=== PATIENT | male | born 1965 | race Caucasian/White ===

== ENCOUNTER 2018-06-11 04:55 | Emergency (ER) | payer SELFPAY ==
[2018-06-11 04:56] VITALS: BP 180/101; PULSE 85; RESP 22; TEMP 36.4; O2SAT 96; BMI 39.6
[2018-06-11 04:59] VITALS: BP 170/116
--- NOTE | 2018-06-11 05:04 | RAD_ITS ---
STUDY: X-RAY CHEST REASON FOR EXAM: Male, 52 years old. Chest pain. TECHNIQUE: Single AP portable view of the chest. COMPARISON: February 12, 2016. FINDINGS: Patient has left-sided intracardiac pacemaker. The patient has had a sternotomy. The lungs are hyperexpanded. There is heterogeneous mixed interstitial and airspace consolidations throughout both lungs. There is mild prominence of bronchovascular markings. There is no demonstrated pleural abnormality. There is moderate cardiac enlargement. Normal mediastinum and seb. There is prominence of the pulmonary hilar arteries without peripheral pulmonary vascular congestion. There is atherosclerotic calcification of the aortic arch with tortuosity. There are diffuse degenerative changes of the visualized thoracic spine. Normal visualized ribs, clavicles, and shoulders. There is no demonstrated abnormality of the visualized soft tissue structures of the upper abdomen. RAD/Chest 1 View (Portable) IMPRESSION: 1. Cardiomegaly and mild pulmonary congestion. 2. Heterogeneous right-sided and left basilar airspace consolidation possibly representing pneumonia. Electronically Signed: Bel Brice MD at 5:56 EST , Service support ,
--- NOTE | 2018-06-11 05:04 | EKG12_ITS ---
Test Reason : CP Blood Pressure : / mmHG Vent. Rate : 079 BPM Atrial Rate : 079 BPM P-R Int : 146 ms QRS Dur : 194 ms QT Int : 462 ms P-R-T Axes : 052 -77 092 degrees QTc Int : 529 ms Atrial-sensed ventricular-paced rhythm Abnormal ECG Confirmed by JIN DURON, JEN ([id number]), editorial clerk GEN HERNÁNDEZ ([id number]) on 06/13/2018 8:48:51 AM Referred By: TAVO Confirmed By:JEN ABDI MD
--- NOTE | 2018-06-11 05:09 | ED.VISSUMM ---
- ER Visit Summary Date of Service: 06/11/18 Chief Complaint: Not feeling well History of Present Illness: The patient is a 52 M presenting stating that he does not feel well. He states that this started today. He is unable to describe his symptoms. He denies chest pain. He states he has had shortness of breath since 2016. He denies abdominal pain, nausea, vomiting. Denies diarrhea or constipation. Denies headache. He states he has decreased energy. He denies lightheadedness or syncope. He states he is due for an ICD check. He has a history of hypertrophic cardiomyopathy status post myomectomy and ICD placement in 2016. He is not a smoker. He denies other medical problems. Physical Examination: Vitals are stable. Blood pressure 170/116. Patient is afebrile. Alert no acute distress. HEENT exam is unremarkable. Neck is supple. Lungs are diminished bilaterally. Heart is regular rate and rhythm. Abdomen is soft nontender nondistended. Extremities are unremarkable. Skin is warm and dry. No focal neurologic deficit. Remainder of exam is unremarkable. Emergency Department Course and Treatment: EKG is paced at rate of 79. Chest xray shows cardiomegaly and mild pulmonary congestion. Heterogeneous right-sided and left basilar airspace consolidation possibly representing pneumonia. Chemistries showed BUN 19, creatinine 1.54, previous 1.29. Troponin 0.043. Urinalysis unremarkable. Blood cultures were sent. He was given Levaquin IV. Discussed with the hospitalist for observation. Patient was seen by the hospitalist and does not want to be admitted. He agrees to a delta troponin. This will be signed out to oncoming physician. Patient agrees to delta troponin but then will sign out AGAINST MEDICAL ADVICE unless it is positive. He plans to drive to [facility] pending these results. Disposition: Pending results Impression: Community acquired pneumonia, fatigue This note was generated with [employer] dictation software. It may contain incorrect words, spelling, and punctuation that were not noted in review of the chart prior to signing ED Disposition - Plan for ED Patient: Chief Complaint: Chest Pain Referrals: Care Physician,No Primary [Primary Care Provider] -
[2018-06-11] MEDS: Aspirin 81 MG TAB.CHEW 324 MG PO (05:10)
--- NOTE | 2018-06-11 05:12 | ED.DCSUM_ITS ---
- ER Visit Summary Date of Service: 06/11/18 Chief Complaint: Not feeling well History of Present Illness: The patient is a 52 M presenting stating that he does not feel well. He states that this started today. He is unable to describe his symptoms. He denies chest pain. He states he has had shortness of breath since 2016. He denies abdominal pain, nausea, vomiting. Denies diarrhea or constipation. Denies headache. He states he has decreased energy. He denies lightheadedness or syncope. He states he is due for an ICD check. He has a history of hypertrophic cardiomyopathy status post myomectomy and ICD placement in 2016. He is not a smoker. He denies other medical problems. Physical Examination: Vitals are stable. Blood pressure 170/116. Patient is afebrile. Alert no acute distress. HEENT exam is unremarkable. Neck is supple. Lungs are diminished bilaterally. Heart is regular rate and rhythm. Abdomen is soft nontender nondistended. Extremities are unremarkable. Skin is warm and dry. No focal neurologic deficit. Remainder of exam is unremarkable. Emergency Department Course and Treatment: EKG is paced at rate of 79. Chest xray shows cardiomegaly and mild pulmonary congestion. Heterogeneous right- sided and left basilar airspace consolidation possibly representing pneumonia. Chemistries showed BUN 19, creatinine 1.54, previous 1.29. Troponin 0.043. Urinalysis unremarkable. Blood cultures were sent. He was given Levaquin IV. Discussed with the hospitalist for observation. Patient was seen by the hospitalist and does not want to be admitted. He agrees to a delta troponin. This will be signed out to oncoming physician. Patient agrees to delta troponin but then will sign out AGAINST MEDICAL ADVICE unless it is positive. He plans to drive to [facility] pending these results. Disposition: Pending results Impression: Community acquired pneumonia, fatigue This note was generated with [employer] dictation software. It may contain incorrect words, spelling, and punctuation that were not noted in review of the chart prior to signing ED Disposition - Plan for ED Patient: Chief Complaint: Chest Pain Referrals: Care Physician,No Primary [Primary Care Provider] -
[2018-06-11 05:14] LABS: Absolute Lymphocyte Count 1.93 X10^3/ul (0.83-4.51); Absolute Neutrophil Count 3.7 X10^3/uL (2.0-7.7); Basophil# 0.05 X10^3/uL; Basophil% 0.6 % (0-1); Eosinophil# 0.76 X10^3/uL; Eosinophils% 9.8 % (0-5); Hematocrit 47.1 % (40-54); Hemoglobin 16.4 g/dl (13.0-16.5); Lymphocyte # 1.93 X10^3/ul (4.0); Lymphocyte % 24.9 % (19-41); Mean Corp Hgb Conc 34.8 g/gl (32-36); Mean Corpuscular Hgb 30.8 pg (27.0-32.0); Mean Corpuscular Volume 88.4 fL (80-94); Monocyte# 1.35 X10^3/uL; Monocyte% 17.4 % (0-10); Neutrophil # 3.65 X10^3/uL (2.7-7.7); POSITIVE COUNT NO; POSITIVE DIFFERENTIAL NO; POSITIVE MORPHOLOGY NO; Platelet Count 259 K/mm3 (150-450); Red Blood Count 5.33 M/mm3 (4.6-6.2); White Blood Count 7.8 K/mm3 (4.4-11.0)
[2018-06-11 05:31] LABS: Bacteria 0 SEEN /hpf (None Seen); Mucous, Urine 0 SEEN /hpf (<or=2+); Red Blood Cells-Urine 0 SEEN /hpf (0-5); Squamous Epithelial Cells - UA 0 SEEN /hpf (0-5); White Blood Cells 0 SEEN /hpf (0-5)
[2018-06-11 05:32] LABS: Anion Gap 9 (5-15); BUN 19 mg/dL (7-18); BUN/Creat Ratio 12.3 RATIO (10-20); Calcium,Total 8.8 mg/dL (8.5-10.1); Chloride 101 mmol/L (98-107); Creatinine, Serum 1.54 mg/dL (0.70-1.30); EST Glomerular Filtration Rate 51 mL/min (>60); Est Glom Filt Rate - Afr Amer 61 mL/min (>60); Estimated Creatinine Clearance 63.41 ml/min; Glucose 149 mg/dL (74-106); Potassium 3.7 mmol/L (3.5-5.1); Sodium Level 137 mmol/L (136-145)
[2018-06-11 05:42] LABS: Color, Urine Yellow (Yellow); Glucose, Dipstick Normal (Normal); Ketone-Dipstick Negative (Negative); Leukocyte Esterase-Dipstick Negative /ul (Negative); Nitrite-Dipstick Negative (Negative); Occult Blood-Urine Negative /ul (Negative); Protein-Dipstick Negative (Negative); Urine Bilirubin Dipstick Negative (Negative); Urine Clarity Clear (Clear); Urine Urobilinogen Normal (Normal)
[2018-06-11 06:04] VITALS: BP 144/78; PULSE 81; RESP 22; O2SAT 98
[2018-06-11] MEDS: levoFLOXacin IV 750 MG/150 ML BAG 100 MG IV (07:08)
[2018-06-11 08:01] LABS: BNP,B-Type NATRIURETIC PEPTIDE 172.3 pg/mL (0-100)
[2018-06-11 08:06] VITALS: BP 122/83; PULSE 74; RESP 19; O2SAT 96
--- NOTE | 2018-06-11 09:24 | ED.VISSUMM ---
- ER Visit Summary Date of Service: 06/11/18 Chief Complaint: [] History of Present Illness: The patient is a 52 M [] Physical Examination: [] Test Results: [] Emergency Department Course and Treatment: [] Treatment Plan: [] Disposition: [] Impression: [] This note was generated with [employer] dictation software. It may contain incorrect words, spelling, and punctuation that were not noted in review of the chart prior to signing ED Disposition - Plan for ED Patient: Disposition: Against Medical Advice Chief Complaint: Chest Pain Instructions: ED Pneumonia Adult, Your Heart is at Risk, Symptoms of a Heart Attack Prescriptions: Doxycycline [Vibramycin] 100 mg PO BID #14 capsule Referrals: Care Physician,No Primary [Primary Care Provider] - Additional Instructions: Your prescription was electronically transmitted to [facility]. If you have any chest discomfort, difficulty breathing or any concerns please do not hesitate to return immediately
--- NOTE | 2018-06-11 09:27 | ED.DCSUM_ITS ---
- ER Visit Summary Date of Service: 06/11/18 Chief Complaint: [] History of Present Illness: The patient is a 52 M [] Physical Examination: [] Test Results: [] Emergency Department Course and Treatment: [] Treatment Plan: [] Disposition: [] Impression: [] This note was generated with [employer] dictation software. It may contain incorrect words, spelling, and punctuation that were not noted in review of the chart prior to signing ED Disposition - Plan for ED Patient: Disposition: Against Medical Advice Chief Complaint: Chest Pain Instructions: ED Pneumonia Adult, Your Heart is at Risk, Symptoms of a Heart Attack Prescriptions: Doxycycline [Vibramycin] 100 mg PO BID #14 capsule Referrals: Care Physician,No Primary [Primary Care Provider] - Additional Instructions: Your prescription was electronically transmitted to [facility]. If you have any chest discomfort, difficulty breathing or any concerns please do not hesitate to return immediately
[2018-06-11 09:35] VITALS: BP 145/90; PULSE 67; RESP 14; O2SAT 96
== END 2018-06-11 09:35 | disposition left against medical advice (07) ==
PROVIDERS: Emergency Provider Emergency Medicine
DX: R91.8 Other nonspecific abnormal finding of lung field (principal); R79.89 Other specified abnormal findings of blood chemistry; I42.2 Other hypertrophic cardiomyopathy; I49.9 Cardiac arrhythmia, unspecified; Z95.810 Presence of automatic (implantable) cardiac defibrillator; I10 Essential (primary) hypertension; Z53.21 Procedure and treatment not carried out due to patient leaving prior to being seen by health care provider; J18.9 Pneumonia, unspecified organism; R53.83 Other fatigue
CPT/HCPCS: 36415; 71045; 80048; 81001; 83880; 84484; 85025; 87040; 87804; 93005; 96365; 96366; 99285; J7050; A4216

== ENCOUNTER 2019-05-29 19:20 | Emergency (ER) | payer OTHER, SELFPAY ==
[2019-05-29] VITALS (7 sets, daily range): BP systolic 143–160; BP diastolic 75–80; PULSE 81–88; RESP 16–29; TEMP 37.4; O2SAT 92–94; BMI 41.5
--- NOTE | 2019-05-29 19:46 | EKG12_ITS ---
Test Reason : Blood Pressure : / mmHG Vent. Rate : 083 BPM Atrial Rate : 083 BPM P-R Int : 142 ms QRS Dur : 174 ms QT Int : 436 ms P-R-T Axes : -11 -85 080 degrees QTc Int : 512 ms Atrial-sensed ventricular-paced rhythm Abnormal ECG Confirmed by LIN ARIZMENDI ([id number]), managing editor GEN HERNÁNDEZ ([id number]) on 06/01/2019 11:24:04 AM Referred By: MR Confirmed By:LIN ARIZMENDI
[2019-05-29 20:00] LABS: Absolute Lymphocyte Count 0.89 X10^3/uL (0.83-4.51); Basophil# 0.04 X10^3/uL; Basophil% 0.3 % (0-1); Eosinophil# 0.34 X10^3/uL; Eosinophils% 2.9 % (0-5); Hematocrit 43.8 % (40-54); Hemoglobin 15.1 g/dL (13.0-16.5); Lymphocyte # 0.89 X10^3/ul (4.0); Lymphocyte % 7.6 % (19-41); Mean Corp Hgb Conc 34.5 g/dL (32-36); Mean Corpuscular Hgb 31.3 pg (27.0-32.0); Mean Corpuscular Volume 90.9 fL (80-94); Mean Platelet Vol. 10.1 fl (6.2-12.0); Monocyte# 1.42 X10^3/uL; Monocyte% 12.1 % (0-10); NRBC Flagged by Analyzer 0 % (0-5); Neutrophil # 9.02 X10^3/uL (2.7-7.7); Neutrophil % 76.7 % (47-70); Platelet Count 232 K/mm3 (150-450); RBC Distribution Width CV 12.6 % (11.6-14.6); Red Blood Count 4.82 M/mm3 (4.6-6.2); White Blood Count 11.8 K/mm3 (4.4-11.0)
[2019-05-29] MEDS: Ipratropium/Albuterol Sulfate 3 ML AMPUL.NEB INHALATION (20:12)
[2019-05-29 20:14] LABS: Anion Gap 6 (5-15); BUN 20 mg/dL (7-18); BUN/Creat Ratio 19.2 RATIO (10-20); Calcium,Total 8.9 mg/dL (8.5-10.1); Chloride 108 mmol/L (98-107); Creatinine, Serum 1.04 mg/dL (0.70-1.30); EST Glomerular Filtration Rate 79 mL/min (>60); Est Glom Filt Rate - Afr Amer 96 mL/min (>60); Estimated Creatinine Clearance 92.83 ml/min; Glucose 112 mg/dL (74-106); Potassium 4.2 mmol/L (3.5-5.1); Sodium Level 139 mmol/L (136-145)
--- NOTE | 2019-05-29 20:30 | RAD_ITS ---
STUDY: X-RAY CHEST REASON FOR EXAM: Male, 53 years old. Cough. TECHNIQUE: PA and lateral views of the chest. COMPARISON: June 11, 2018. FINDINGS: Pacemaker device on the left is stable. There are monitoring devices. There are moderate interstitial and groundglass increased opacities of the lungs. There is no demonstrated pleural abnormality. Sternal cerclage wires are present from a prior sternotomy. There is cardiac enlargement. Normal mediastinum and seb. Normal visualized pulmonary arteries. Normal visualized aortic arch and descending thoracic aorta. There are diffuse degenerative changes of the visualized thoracic spine. Normal visualized ribs, clavicles, and shoulders. There is no demonstrated abnormality of the visualized soft tissue structures of the upper abdomen. RAD/Chest PA and Lateral IMPRESSION: Cardiac enlargement. Interstitial edema or fibrosis. Electronically Signed: Carlton Haynes MD at 21:17 EST , Service support ,
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
[2019-05-29] MEDS: Azithromycin 250 MG Tablet 500 MG PO (22:14)
== END 2019-05-29 22:23 | disposition home or self-care (01) ==
PROVIDERS: Emergency Provider Emergency Medicine
DX: J18.9 Pneumonia, unspecified organism (principal); I42.2 Other hypertrophic cardiomyopathy; Z95.810 Presence of automatic (implantable) cardiac defibrillator
CPT/HCPCS: 71046; 80048; 84484; 85025; 93005; 94640; 99285; J7030

== ENCOUNTER → 2020-04-19 09:56 | Emergency (ER) | payer MEDICAID, SELFPAY ==
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
[2020-04-19] MEDS: Mixture 30 ML Bottle 5 ML TOPICAL (10:37)
== END | disposition home or self-care (01) ==
DX: R04.0 Epistaxis (principal); I42.1 Obstructive hypertrophic cardiomyopathy; Z79.01 Long term (current) use of anticoagulants; Z79.899 Other long term (current) drug therapy
CPT/HCPCS: 30901; 99281; 99283

== ENCOUNTER 2020-06-28 07:51 | Emergency (ER) | payer MEDICAID, SELFPAY ==
[2020-04-19 09:58] VITALS: BMI 36.6
[2020-06-28 07:52] VITALS: BP 170/98; PULSE 70; RESP 28; TEMP 36.2; O2SAT 95; BMI 39.8
[2020-06-28 07:55] VITALS: O2SAT 96
--- NOTE | 2020-06-28 07:59 | ED.RN ---
OLD EKG PULLED
--- NOTE | 2020-06-28 08:06 | EKG12_ITS ---
Test Reason : SOB Blood Pressure : / mmHG Vent. Rate : 070 BPM Atrial Rate : 136 BPM P-R Int : 000 ms QRS Dur : 188 ms QT Int : 478 ms P-R-T Axes : 000 -72 096 degrees QTc Int : 516 ms Ventricular-paced rhythm Abnormal ECG Confirmed by ADAM DURON, CRISTELA ([id number]), index editor MABEL OCONNOR ([id number]) on 07/03/2020 10:09:06 AM Referred By: SILVER Confirmed By:JOSEP MEDINA MD
--- NOTE | 2020-06-28 08:06 | RAD_ITS ---
STUDY: X-RAY CHEST REASON FOR EXAM: Male, 54 years old. sob TECHNIQUE: Single AP portable view of the chest. COMPARISON: 05/29/2019 FINDINGS: Increased patchy airspace disease bilaterally. Stable cardiomegaly with left chest wall pacing device and median sternotomy wires. Remainder is stable. RAD/Chest 1 View (Portable) IMPRESSION: Increased patchy airspace disease bilaterally Electronically Signed: Kin Hsu DO at 8:34 EST Tel , Service support ,
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
[2020-06-28 08:28] LABS: D-Dimer Quantitative (DVT/PE) 0.38 FEU/ug/m (0.27-0.49)
[2020-06-28 08:32] LABS: Anion Gap 7 (5-15); BUN 25 mg/dL (7-18); Calcium,Total 9.1 mg/dL (8.5-10.1); Chloride 103 mmol/L (98-107); Creatinine, Serum 1.19 mg/dL (0.70-1.30); EST Glomerular Filtration Rate 68 mL/min (>60); Est Glom Filt Rate - Afr Amer 82 mL/min (>60); Glucose 158 mg/dL (74-106); Sodium Level 137 mmol/L (136-145)
[2020-06-28 08:51] LABS: BNP,B-Type NATRIURETIC PEPTIDE 353.9 pg/mL (0-100)
[2020-06-28 09:22] VITALS: O2SAT 97
[2020-06-28 09:26] LABS: Absolute Lymphocyte Count 0.77 X10^3/uL (0.83-4.51); Absolute Neutrophil Count 7.7 X10^3/uL (2.0-7.7); Basophil# 0.04 X10^3/uL; Basophil% 0.4 % (0-1); Eosinophil# 0.22 X10^3/uL; Eosinophils% 2.2 % (0-5); Hematocrit 45.1 % (40-54); Hemoglobin 15.3 g/dL (13.0-16.5); Lymphocyte # 0.77 X10^3/ul (4.0); Lymphocyte % 7.6 % (19-41); Mean Corp Hgb Conc 33.9 g/dL (32-36); Mean Corpuscular Hgb 30.8 pg (27.0-32.0); Mean Corpuscular Volume 90.7 fL (80-94); Mean Platelet Vol. 10.1 fl (6.2-12.0); Monocyte# 1.37 X10^3/uL; Monocyte% 13.5 % (0-10); NRBC Flagged by Analyzer 0 % (0-5); Neutrophil # 7.71 X10^3/uL (2.7-7.7); Neutrophil % 75.9 % (47-70); Platelet Count 238 K/mm3 (150-450); RBC Distribution Width SD 42.5 fl (35.1-43.9); Red Blood Count 4.97 M/mm3 (4.6-6.2); White Blood Count 10.2 K/mm3 (4.4-11.0)
[2020-06-28 10:09] VITALS: BP 161/105; PULSE 70; RESP 17; O2SAT 99
[2020-06-28 11:03] VITALS: BP 162/71; PULSE 84; RESP 15; O2SAT 98
[2020-06-28] MEDS: levoFLOXacin 750 MG Tablet PO (11:06)
== END 2020-06-28 11:17 | disposition home or self-care (01) ==
LOC: ED 08:52
PROVIDERS: Emergency Provider Emergency Medicine
DX: J18.9 Pneumonia, unspecified organism (principal); Z79.01 Long term (current) use of anticoagulants
CPT/HCPCS: 71045; 80048; 83880; 84484; 85025; 85379; 87426; 93005; 99285; A4216

== ENCOUNTER 2021-06-15 11:29 | Emergency (ER) | payer MEDICAID, SELFPAY ==
[2021-06-15 11:31] VITALS: BP 154/102; PULSE 93; RESP 21; TEMP 35.6; O2SAT 93; BMI 38.5
--- NOTE | 2021-06-15 11:33 | EKG12_ITS ---
Test Reason : CP Blood Pressure : / mmHG Vent. Rate : 096 BPM Atrial Rate : 096 BPM P-R Int : 120 ms QRS Dur : 186 ms QT Int : 428 ms P-R-T Axes : 111 -78 105 degrees QTc Int : 540 ms Atrial-sensed ventricular-paced rhythm Abnormal ECG Confirmed by PAN DURON, USAMA ([id number]), purchase request editor MABEL OCONNOR ([id number]) on 06/17/2021 11:42:07 AM Referred By: EFRAIN Confirmed By:USAMA PERLA MD
[2021-06-15 11:56] LABS: Absolute Lymphocyte Count 0.74 X10^3/uL (0.83-4.51); Basophil# 0.05 X10^3/uL; Basophil% 0.6 % (0-1); Eosinophil# 0.15 X10^3/uL; Eosinophils% 1.9 % (0-5); Hematocrit 46.8 % (40-54); Hemoglobin 15.8 g/dL (13.0-16.5); Lymphocyte # 0.74 X10^3/ul (0.83-4.51); Lymphocyte % 9.3 % (19-41); Mean Corp Hgb Conc 33.8 g/dL (32-36); Mean Corpuscular Hgb 31.1 pg (27.0-32.0); Mean Corpuscular Volume 92.1 fL (80-94); Monocyte# 0.97 X10^3/uL; Monocyte% 12.2 % (0-10); NRBC Flagged by Analyzer 0 % (0-5); Neutrophil # 6.02 X10^3/uL (2.7-7.7); Neutrophil % 75.7 % (47-70); Platelet Count 272 K/mm3 (150-450); RBC Distribution Width CV 13.4 % (11.6-14.6); RBC Distribution Width SD 45.9 fl (35.1-43.9); Red Blood Count 5.08 M/mm3 (4.6-6.2)
[2021-06-15 12:12] LABS: Anion Gap 5 (5-15); BUN 12 mg/dL (7-18); Calcium,Total 9.3 mg/dL (8.5-10.1); Chloride 105 mmol/L (98-107); Creatinine, Serum 1.09 mg/dL (0.70-1.30); EST Glomerular Filtration Rate 75 mL/min (>60); Est Glom Filt Rate - Afr Amer 90 mL/min (>60); Estimated Creatinine Clearance 86.54 ml/min; Glucose 115 mg/dL (74-106); Potassium 4.4 mmol/L (3.5-5.1); Sodium Level 138 mmol/L (136-145); Troponin-I HS 51 pg/mL (3.0-78.0)
--- NOTE | 2021-06-15 12:12 | RAD_ITS ---
STUDY: X-RAY CHEST REASON FOR EXAM: Male, 55 years old. Chest pain TECHNIQUE: Single AP portable view of the chest. COMPARISON: Comparison is made with prior examination dated 06/28/2020. FINDINGS: Diffuse increased interstitial markings with areas of confluence in both lungs. This may represent CHF superimposed on chronic interstitial scarring. Bibasilar atelectasis. Blunting of both costo phrenic angles. Sternal cerclage wires and vascular clips are present from a prior sternotomy and coronary artery bypass graft procedure (CABG). A left-sided dual chamber pacemaker seen. Normal mediastinum and seb. Normal visualized pulmonary arteries. There is atherosclerotic tortuosity of the aortic arch and descending thoracic aorta. There are diffuse degenerative changes of the visualized thoracic spine. Normal visualized ribs, clavicles, and shoulders. There is no demonstrated abnormality of the visualized soft tissue structures of the upper abdomen. RAD/Chest 1 View (Portable) IMPRESSION: Findings suggestive of a CHF superimposed on chronic scarring with a mild bibasilar atelectasis and blunting of both cause phrenic angles. Electronically Signed: Brice Jackson MD at 12:29 EST , Service support ,
[2021-06-15 14:34] VITALS: O2SAT 95
[2021-06-15 14:43] VITALS: BP 159/107; PULSE 99; RESP 26; O2SAT 95
--- NOTE | 2021-06-15 14:53 | EDS_ITS ---
HPI History of Present Illness Chief Complaint: Shortness of Breath Informant: patient Onset/Context/Timing Onset: Days Context: Gradual Onset Narrative Narrative: Patient presents secondary to shortness of breath on exertion. He has a history of atrial fibrillation and states he was cardioverted last week at the [facility]. He states he does not feel any better after the cardiover rowena and is concerned he is still in A. fib. He denies chest pain. He has significant dyspnea on exertion. He denies history of CHF and is not on a diuretic. He is anticoagulated with Eliquis. [facility] Medical History Atrial fibrillation Hypertrophic obstructive cardiomyopathy Pacemaker Home Medications apixaban 5 mg PO BID 05/29/19 [History Last Taken Unknown] albuterol sulfate 1 - 2 puff INHALATION Q4H PRN PRN #1 inhaler 06/28/20 [Rx Last Taken Unknown] levofloxacin 750 mg PO DAILY #7 tab 06/28/20 [Rx Last Taken Unknown] furosemide [Lasix] 40 mg PO DAILY #7 tab 06/15/21 [Rx Last Taken Unknown] Allergy/AdvReac Type Severity Reaction Status Date / Time cat dander Allergy Other Verified 06/15/21 11:33 Surgical History History of open heart surgery History of repair of hip fracture Social History Smoking Status: Never smoker ROS ROS ED Constitutional Constitutional ED: Denies chills or fever(s) Eyes Eyes: Denies change in vision ENT ENT ED: Denies sore throat Cardiovascular Cardiovascular: Denies chest pain Respiratory/Chest Respiratory/Chest: Reports dyspnea; Denies cough Gastrointestinal Gastrointestinal: Denies abdominal pain, diarrhea, nausea or vomiting Genitourinary Genitourinary ED: Reports urinary frequency; Denies dysuria Musculoskeletal Musculoskeletal: Denies back pain Integumentary Denies rash Neurologic Neurologic: Denies headache(s) or weakness Allergic/Immunologic Allergic/Immunologic ED: Denies urticaria EXAM Physical Exam Const Vital Signs: 06/15/21 11:31 06/15/21 14:34 06/15/21 14:43 Temperature 96.1 F L Temperature Source Temporal Pulse Rate 93 99 Respiratory Rate 21 H 26 H Respiratory Effort Normal Respiratory Depth Normal Respiratory Pattern Normal Blood Pressure 154/102 H 159/107 H Blood Pressure Mean 119 124 Pulse Ox 93 95 Oxygen Delivery Method Room Air Room Air Room Air Positive well nourished and well developed General Appearance ED: well developed HEENT Reports moist mucous membranes Eyes PERRL and EOMs intact bilaterally Resp normal respiratory effort and clear to auscultation bilaterally Cardio regular rate and regular rhythm GI normal to inspection, nondistended, normoactive bowel sounds and non-tender Palpation: soft Extremity normal to inspection Neuro oriented x3 Sensorium / Orientation: alert Skin no rashes or lesions noted MDM MDM MDM Narrative Medical decision making narrative: EKG, chest x-ray, lab work obtained. Covid swab ordered. Lab Data Attestation: I reviewed the patient's lab results. Labs: Laboratory Results - last 24 hr 06/15/21 06/15/21 06/15/21 11:45 11:45 15:29 WBC 8.0 RBC 5.08 Hgb 15.8 Hct 46.8 MCV 92.1 MCH 31.1 MCHC 33.8 RDW Std Deviation 45.9 H RDW Coeff of Cassia 13.4 Plt Count 272 MPV 10.0 Immature Gran % (Auto) 0.300 Neut % (Auto) 75.7 H Lymph % (Auto) 9.3 L [place] % (Auto) 12.2 H Eos % (Auto) 1.9 Baso % (Auto) 0.6 Absolute Neuts (auto) 6.0 Absolute Lymphs (auto) 0.74 L Nucleated RBC % 0 Sodium 138 Potassium 4.4 Chloride 105 Carbon Dioxide 28.0 Anion Gap 5 BUN 12 Creatinine 1.09 Estim Creat Clear Calc 86.54 Est GFR (MDRD) Af Amer 90 Est GFR (MDRD) Non-Af 75 BUN/Creatinine Ratio 11.0 Glucose 115 H Calcium 9.3 Troponin I High Sens 51 58 B-Natriuretic Peptide 06/15/21 15:29 WBC RBC Hgb Hct MCV MCH MCHC RDW Std Deviation RDW Coeff of Cassia Plt Count MPV Immature Gran % (Auto) Neut % (Auto) Lymph % (Auto) [place] % (Auto) Eos % (Auto) Baso % (Auto) Absolute Neuts (auto) Absolute Lymphs (auto) Nucleated RBC % Sodium Potassium Chloride Carbon Dioxide Anion Gap BUN Creatinine Estim Creat Clear Calc Est GFR (MDRD) Af Amer Est GFR (MDRD) Non-Af BUN/Creatinine Ratio Glucose Calcium Troponin I High Sens B-Natriuretic Peptide 587.7 H Radiography Chest X-Ray - ED: 1 View, Read by ED Physician and CHF Diagnostic Testing: Clinical Impression(s) from Imaging Studies Chest X-Ray 06/15/21 12:12 IMPRESSION: Findings suggestive of a CHF superimposed on chronic scarring with a mild bibasilar atelectasis and blunting of both cause phrenic angles. Electronically Signed: Brice Jackson MD at 12:29 EST , Service support , EKG Initial EKG: Attestation: I personally reviewed and interpreted this EKG as follows: Comments: Paced rhythm with ventricular 96 bpm. No acute ischemia. Treatment and Re-Evaluation Comments:: Covid test negative. Lab work reveals normal white count. Chemistry studies normal. Initial troponin 51 and delta is 58. BNP is elevated at 587. Chest x-ray is consistent with CHF. 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 Return for worsening symptoms or concerns. Discharge Plan Triage Chief Complaint: Shortness of Breath ED Provider: Lyric Persaud Dx/Rx/DC Orders Clinical Impression: CHF (congestive heart failure) Instructions: ED Heart Failure, Congestive (CHF) Prescriptions: New furosemide [Lasix] 40 mg tablet 40 mg PO DAILY Qty: 7 RF: 0 No Action apixaban 5 MG tablet 5 mg PO BID RF: 0 levofloxacin 750 MG tablet 750 mg PO DAILY Qty: 7 RF: 0 albuterol sulfate 1 INHALER inhaler 1 - 2 puff INHALATION Q4H PRN PRN (Reason: Wheezing) Qty: 1 RF: 0 Primary Care Provider: Care Physician,No Primary Referrals: Care Physician,No Primary [Primary Care Provider] - Activity Restrictions/Additional Instructions: Follow-up with Dr. Arceo as soon as possible. Disposition Disposition: Home, Self Care
[2021-06-15 16:02] LABS: Troponin-I HS 58 pg/mL (3.0-78.0)
[2021-06-15 16:04] LABS: BNP,B-Type NATRIURETIC PEPTIDE 587.7 pg/mL (0-100)
[2021-06-15 16:29] VITALS: BP 128/97; PULSE 89; RESP 17; O2SAT 94
== END 2021-06-15 16:30 | disposition home or self-care (01) ==
PROVIDERS: Emergency Provider Emergency Medicine
DX: I50.9 Heart failure, unspecified (principal); I48.91 Unspecified atrial fibrillation; I42.1 Obstructive hypertrophic cardiomyopathy; Z20.822 Contact with and (suspected) exposure to COVID-19; Z79.01 Long term (current) use of anticoagulants; Z79.899 Other long term (current) drug therapy; Z95.0 Presence of cardiac pacemaker
CPT/HCPCS: 71045; 80048; 83880; 84484; 85025; 87426; 93005; 99284; A4216

== ENCOUNTER 2022-08-24 12:09 | Emergency (ER) | payer MEDICAID, SELFPAY ==
[2022-08-24 12:10] VITALS: BP 134/82; PULSE 70; RESP 24; TEMP 37.9; O2SAT 94; BMI 39.9
[2022-08-24 12:13] VITALS: BP 118/71; PULSE 60; RESP 18; TEMP 36.6; O2SAT 94
--- NOTE | 2022-08-24 12:29 | EKG12_ITS ---
Test Reason : CP Blood Pressure : / mmHG Vent. Rate : 070 BPM Atrial Rate : 067 BPM P-R Int : 000 ms QRS Dur : 182 ms QT Int : 490 ms P-R-T Axes : 000 -70 095 degrees QTc Int : 529 ms Ventricular-paced rhythm Abnormal ECG Confirmed by PAN DURON, USAMA ([id number]), editor sound MABEL OCONNOR ([id number]) on 08/25/2022 8:48:56 AM Referred By: EFRAIN Confirmed By:USAMA PERLA MD
--- NOTE | 2022-08-24 12:31 | EX.ED.DYSGE1 ---
HPI History of Present Illness Chief Complaint: Shortness of Breath Informant: patient Onset/Context/Timing Onset: Days Current Severity: Mild Maximum Severity: Moderate Narrative Narrative: Patient presents with shortness of breath. He has a history of CHF and feels that he is filling up with fluid again. He reports increased shortness of breath over the past week or so. He denies chest pain. No significant cough. He states he is still taking his Lasix and having good urine output. [facility] Medical History Atrial fibrillation CHF (congestive heart failure) Allergy/AdvReac Type Severity Reaction Status Date / Time No Known Allergies Allergy Verified 08/24/22 15:09 Family History no significant family his Social History Smoking Status: Never smoker ROS ROS ED Constitutional Constitutional ED: Denies chills or fever(s) Eyes Eyes: Denies change in vision or discharge from eye(s) ENT ENT ED: Denies discharge from eye(s), rhinorrhea or sore throat Cardiovascular Cardiovascular: Denies chest pain or palpitations Respiratory/Chest Respiratory/Chest: Reports dyspnea Gastrointestinal Gastrointestinal: Denies abdominal pain, nausea or vomiting Genitourinary Genitourinary ED: Denies dysuria Musculoskeletal Musculoskeletal: Denies back pain or extremity pain Integumentary Denies Abrasions or rash Neurologic Neurologic: Denies headache(s) or weakness Psychiatric Psychiatric: Denies anxiety or depression Allergic/Immunologic Allergic/Immunologic ED: Denies lip swelling or urticaria EXAM Physical Exam Const Vital Signs: 08/24/22 12:10 08/24/22 13:22 08/24/22 12:13 Temperature 100.3 F H 98 F Temperature Source Temporal Temporal Pulse Rate 70 60 Respiratory Rate 24 H 18 Respiratory Effort Normal Respiratory Depth Normal Respiratory Pattern Normal Blood Pressure 134/82 H 118/71 Blood Pressure Mean 99 86 Pulse Ox 94 94 Oxygen Delivery Method Nasal Cannula Room Air Oxygen Flow Rate (L/min) 2 08/24/22 13:13 Temperature 100.3 F H Temperature Source Temporal Pulse Rate 70 Respiratory Rate 18 Respiratory Effort Respiratory Depth Respiratory Pattern Blood Pressure 141/65 H Blood Pressure Mean 90 Pulse Ox 96 Oxygen Delivery Method Oxygen Flow Rate (L/min) Positive well nourished and well developed General Appearance ED: well developed HEENT Reports normocephalic and head/scalp atraumatic Eyes PERRL and EOMs intact bilaterally Neck supple Chest Wall inspection of chest normal and palpation of chest normal Resp normal respiratory effort Resp Narrative: Slightly diminished air movement bilateral bases. No wheezing or crackles noted at this time. Cardio regular rate and regular rhythm GI normal to inspection, nondistended, normoactive bowel sounds Palpation: soft Extremity normal to inspection Neuro oriented x3 and no sensory deficits noted Sensorium / Orientation: alert Motor Exam: strength 5/5 throughout Psych mental status grossly normal Skin no rashes or lesions noted MDM MDM MDM Narrative Medical decision making narrative: Patient placed on night monitor. EKG obtained to evaluate for cardiac arrhythmia/ischemia. Lab work obtained to evaluate for leukocytosis, anemia, electrolyte derangement. Troponin and BNP obtained to evaluate for cardiac ischemia and congestive heart failure. Given the patient's low-grade fever on arrival lactic acid was performed along with blood culture. Chest x-ray obtained to evaluate for pneumonia/CHF. Patient was given Tylenol for temperature of 100.3 on arrival. Lab Data Attestation: I reviewed the patient's lab results. Labs: Laboratory Results - last 24 hr 08/24/22 08/24/22 08/24/22 13:10 13:10 13:10 WBC 16.7 H RBC 5.18 Hgb 15.8 Hct 48.1 MCV 92.9 MCH 30.5 MCHC 32.8 RDW Std Deviation 45.8 H RDW Coeff of Cassia 13.5 Plt Count 266 MPV 10.5 Immature Gran % (Auto) 0.600 Neut % (Auto) 87.7 H Lymph % (Auto) 3.[address] [place] % (Auto) 7.7 Eos % (Auto) 0.2 Baso % (Auto) 0.4 Absolute Neuts (auto) 14.7 H Absolute Lymphs (auto) 0.56 L Nucleated RBC % 0 Differential Comment SCANNED Sodium 136 Potassium 4.9 Chloride 101 Carbon Dioxide 26.0 Anion Gap 9 BUN 19 H Creatinine 1.33 H Estim Creat Clear Calc 70.09 Est GFR (MDRD) Af Amer 71 Est GFR (MDRD) Non-Af 59 L BUN/Creatinine Ratio 14.3 Glucose 122 H Lactic Acid Calcium 9.3 Total Bilirubin 1.10 H Direct Bilirubin 0.23 AST 40 H ALT 52 Alkaline Phosphatase 72 Troponin I High Sens 45 B-Natriuretic Peptide 152.0 H Total Protein 8.1 Albumin 4.1 Globulin 4.0 08/24/22 13:10 WBC RBC Hgb Hct MCV MCH MCHC RDW Std Deviation RDW Coeff of Cassia Plt Count MPV Immature Gran % (Auto) Neut % (Auto) Lymph % (Auto) [place] % (Auto) Eos % (Auto) Baso % (Auto) Absolute Neuts (auto) Absolute Lymphs (auto) Nucleated RBC % Differential Comment Sodium Potassium Chloride Carbon Dioxide Anion Gap BUN Creatinine Estim Creat Clear Calc Est GFR (MDRD) Af Amer Est GFR (MDRD) Non-Af BUN/Creatinine Ratio Glucose Lactic Acid 2.1 H* Calcium Total Bilirubin Direct Bilirubin AST ALT Alkaline Phosphatase Troponin I High Sens B-Natriuretic Peptide Total Protein Albumin Globulin Radiography Chest X-Ray - ED: 1 View, Read by ED Physician and - (Cardiomegaly. Mild CHF versus infiltrate.) Diagnostic Testing: Clinical Impression(s) from Imaging Studies Chest X-Ray 08/24/22 12:50 IMPRESSION: Cardiomegaly and mild degree of CHF. Electronically Signed: Brice Jackson MD at 13:12 EST , EKG Initial EKG: Attestation: I personally reviewed and interpreted this EKG as follows: Interpretation: - (Paced rhythm at 70 bpm with what appears to be underlying atrial fibrillation.) Treatment and Re-Evaluation Narrative: Patient has been observed ambulating to the restroom and back multiple times with no significant dyspnea. CBC reveals a white count of 16.7 with 87% neutrophils. Chemistry studies significant for BUN of 19 and a creatinine 1.33. Glucose is 122. LFTs are unremarkable. Troponin is normal at 45. BNP is 152. Lactic acid is 2.1. Chest x-ray per my interpretation reveals mild CHF versus infiltrate. Radiology interpretation is reviewed and feels that he does have mild CHF. With patient having increased shortness of breath, cough, leukocytosis, low-grade fever, swab for COVID and influenza is obtained. These returned negative. In light of this patient will be treated with a course of doxycycline for possible pneumonia. I will give him a single dose of IV Lasix here to help with slight fluid overload. Repeat temperature here is 98.3. 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 Return instructions are given. Discharge Plan Triage Chief Complaint: Shortness of Breath ED Provider: Lyric Persaud Dx/Rx/DC Orders Clinical Impression: Pneumonia, CHF (congestive heart failure) Instructions: ED Heart Failure, Congestive (CHF), ED Pneumonia (Adult) Primary Care Provider: Care Physician,No Primary Referrals: David Lombardo MD [Non-Staff] - As Needed Care Physician,No Primary [Primary Care Provider] - Activity Restrictions/Additional Instructions: Follow-up with your medical records library professor as scheduled. Disposition Disposition: Home, Self Care
--- NOTE | 2022-08-24 12:50 | RAD_ITS ---
STUDY: X-RAY CHEST REASON FOR EXAM: Male, 56 years old. sob TECHNIQUE: Single AP portable view of the chest. COMPARISON: None. FINDINGS: EKG electrodes are seen. Mild degree of vascular congestion and CHF. There is no demonstrated pleural abnormality. Sternal cerclage wires and vascular clips are present from a prior sternotomy and coronary artery bypass graft procedure (CABG). A left-sided dual-chamber pacemaker is seen. Normal mediastinum and seb. Normal visualized pulmonary arteries. There is atherosclerotic tortuosity of the aortic arch and descending thoracic aorta. There are diffuse degenerative changes of the visualized thoracic spine. Normal visualized ribs, clavicles, and shoulders. There is no demonstrated abnormality of the visualized soft tissue structures of the upper abdomen. RAD/Chest 1 View (Portable) IMPRESSION: Cardiomegaly and mild degree of CHF. Electronically Signed: Brice Jackson MD at 13:12 EST ,
--- NOTE | 2022-08-24 13:08 | NURSING ---
NO OLD EKGS
[2022-08-24] MEDS: Acetaminophen 500 MG Tablet 1000 MG PO (13:11)
[2022-08-24 13:13] VITALS: BP 141/65; PULSE 70; RESP 18; TEMP 37.9; O2SAT 96
[2022-08-24 13:22] VITALS: O2SAT 95
[2022-08-24 13:30] LABS: Absolute Lymphocyte Count 0.56 X10^3/uL (0.83-4.51); Absolute Neutrophil Count 14.7 X10^3/uL (2.0-7.7); Basophil# 0.06 X10^3/uL; Basophil% 0.4 % (0-1); Eosinophil# 0.03 X10^3/uL; Eosinophils% 0.2 % (0-5); Hematocrit 48.1 % (40-54); Hemoglobin 15.8 g/dL (13.0-16.5); Lymphocyte # 0.56 X10^3/ul (0.83-4.51); Lymphocyte % 3.4 % (19-41); Mean Corp Hgb Conc 32.8 g/dL (32-36); Mean Corpuscular Hgb 30.5 pg (27.0-32.0); Mean Corpuscular Volume 92.9 fL (80-94); Mean Platelet Vol. 10.5 fl (6.2-12.0); Monocyte# 1.28 X10^3/uL; Monocyte% 7.7 % (0-10); NRBC Flagged by Analyzer 0 % (0-5); Neutrophil # 14.67 X10^3/uL (2.7-7.7); Neutrophil % 87.7 % (47-70); POSITIVE DIFFERENTIAL YES; Platelet Count 266 K/mm3 (150-450); RBC Distribution Width CV 13.5 % (11.6-14.6); RBC Distribution Width SD 45.8 fl (35.1-43.9); Red Blood Count 5.18 M/mm3 (4.6-6.2); White Blood Count 16.7 K/mm3 (4.4-11.0)
[2022-08-24 13:36] LABS: Differential Indicated SCAN CRITERIA MET
[2022-08-24 13:54] LABS: AST(SGOT) 40 U/L (15-37); Alanine Aminotransfer ALT/SGPT 52 U/L (16-61); Albumin, Serum 4.1 g/dL (3.2-5.0); Alkaline Phosphatase 72 U/L (45-117); Anion Gap 9 (5-15); BUN 19 mg/dL (7-18); BUN/Creat Ratio 14.3 RATIO (10-20); Bilirubin, Direct 0.23 mg/dL (0.00-0.30); Calcium,Total 9.3 mg/dL (8.5-10.1); Chloride 101 mmol/L (98-107); Creatinine, Serum 1.33 mg/dL (0.70-1.30); EST Glomerular Filtration Rate 59 mL/min (>60); Est Glom Filt Rate - Afr Amer 71 mL/min (>60); Estimated Creatinine Clearance 70.09 ml/min; Glucose 122 mg/dL (74-106); Potassium 4.9 mmol/L (3.5-5.1); Protein, Total 8.1 g/dL (6.4-8.2); Sodium Level 136 mmol/L (136-145); Troponin-I HS 45 pg/mL (3.0-78.0)
[2022-08-24 13:56] LABS: Lactic Acid 2.1 mmol/L (0.4-1.9)
[2022-08-24 14:00] VITALS: BP 143/55; PULSE 88; RESP 16; O2SAT 96
[2022-08-24 14:05] LABS: Differential Comment SCANNED
[2022-08-24] MEDS: Furosemide 40 MG/4 ML Vial IV (15:21)
[2022-08-24] MEDS: Doxycycline 100 MG CAPSULE PO (15:21)
[2022-08-24 15:38] VITALS: BP 143/55; PULSE 88; RESP 16; O2SAT 96
[2022-08-24 17:24] LABS: Reflex Lactate? Y
== END 2022-08-24 15:44 | disposition home or self-care (01) ==
PROVIDERS: Emergency Provider Emergency Medicine; Visit Provider Emergency Medicine
DX: J18.9 Pneumonia, unspecified organism (principal); I50.9 Heart failure, unspecified; Z20.822 Contact with and (suspected) exposure to COVID-19
CPT/HCPCS: 71045; 80048; 80076; 83605; 83880; 84484; 85025; 87040; 87428; 93005; 96374; 99285; A4216; J1940

== ENCOUNTER 2022-10-02 18:03 | Emergency (ER) | payer MEDICAID, SELFPAY ==
[2022-10-02 18:04] VITALS: BP 136/85; PULSE 70; RESP 20; TEMP 35.5; O2SAT 96; BMI 38.2
[2022-10-02 18:08] VITALS: O2SAT 96
--- NOTE | 2022-10-02 18:23 | EKG12_ITS ---
Test Reason : SOB Blood Pressure : / mmHG Vent. Rate : 070 BPM Atrial Rate : 202 BPM P-R Int : 000 ms QRS Dur : 200 ms QT Int : 500 ms P-R-T Axes : 000 -75 096 degrees QTc Int : 540 ms Ventricular-paced rhythm Abnormal ECG Confirmed by ADAM DURON, CRISTELA ([id number]), assistant production editor KALEB POLO ([id number]) on 10/04/2022 11:19:27 AM Referred By: Confirmed By:JOSEP MEDINA MD
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
[2022-10-02 18:48] LABS: Absolute Lymphocyte Count 0.73 X10^3/uL (0.83-4.51); Basophil# 0.02 X10^3/uL; Basophil% 0.4 % (0-1); Eosinophil# 0.21 X10^3/uL; Eosinophils% 4.3 % (0-5); Hemoglobin 15.7 g/dL (13.0-16.5); Lymphocyte # 0.73 X10^3/ul (0.83-4.51); Lymphocyte % 14.8 % (19-41); Mean Corp Hgb Conc 34.9 g/dL (32-36); Mean Corpuscular Hgb 31.7 pg (27.0-32.0); Mean Corpuscular Volume 90.7 fL (80-94); Mean Platelet Vol. 10.3 fl (6.2-12.0); Monocyte# 0.95 X10^3/uL; Monocyte% 19.3 % (0-10); NRBC Flagged by Analyzer 0 % (0-5); Neutrophil # 2.99 X10^3/uL (2.7-7.7); Neutrophil % 60.8 % (47-70); Platelet Count 227 K/mm3 (150-450); RBC Distribution Width CV 13.5 % (11.6-14.6); RBC Distribution Width SD 45.4 fl (35.1-43.9); Red Blood Count 4.96 M/mm3 (4.6-6.2); White Blood Count 4.9 K/mm3 (4.4-11.0)
--- NOTE | 2022-10-02 18:55 | RAD_ITS ---
INDICATION: chest pain EXAMINATION/TECHNIQUE: X-RAY - XR Chest 1 View COMPARISON: 06/15/2021 FINDINGS: LIFE-SUPPORT AND LINES: 1. Sternal wires and transvenous pacer/AICD system without change. 2. No pneumothorax. HEART AND VESSELS: Cardiac silhouette is large. There is vascular congestion and mild to moderate interstitial edema. LUNGS AND PLEURAL SPACES: Interstitial prominence throughout the lungs bilaterally particularly at the lung bases. No consolidation, no effusion. No pulmonary mass is noted. MEDIASTINUM AND HILAR REGIONS: No masses adenopathy noted. No areas of calcification. Visualized upper airway is normal in position. BONY ELEMENTS: No acute bony changes noted. RAD/Chest 1 View (Portable) IMPRESSION: 1. Postop change of prior CABG and transvenous pacer/AICD placement. 2. No pneumothorax. 3. Cardiomegaly vascular congestion and mild to moderate congestive failure. 4. No consolidation or effusion. Electronically Signed: Santino Blackwood MD at 19:34 EDT ,
[2022-10-02 19:05] LABS: Anion Gap 6 (5-15); BUN 17 mg/dL (7-18); Calcium,Total 8.9 mg/dL (8.5-10.1); Chloride 102 mmol/L (98-107); Creatinine, Serum 1.13 mg/dL (0.70-1.30); EST Glomerular Filtration Rate 71 mL/min (>60); Est Glom Filt Rate - Afr Amer 86 mL/min (>60); Estimated Creatinine Clearance 82.49 ml/min; Glucose 102 mg/dL (74-106); Potassium 3.6 mmol/L (3.5-5.1); Sodium Level 136 mmol/L (136-145); Troponin-I HS (w/2H Reflex) 39 pg/mL (3.0-78.0)
[2022-10-02 20:20] LABS: BNP,B-Type NATRIURETIC PEPTIDE 120.5 pg/mL (0-100)
[2022-10-02 20:39] VITALS: O2SAT 92
[2022-10-02 21:12] LABS: Troponin-I HS 49 pg/mL (3.0-78.0)
[2022-10-02 22:27] VITALS: BP 130/74
== END 2022-10-02 22:28 | disposition home or self-care (01) ==
PROVIDERS: Physician Assistant; Emergency Provider Emergency Medicine; Visit Provider Emergency Medicine
DX: R06.02 Shortness of breath (principal); I42.1 Obstructive hypertrophic cardiomyopathy; I50.9 Heart failure, unspecified; I48.91 Unspecified atrial fibrillation; I44.7 Left bundle-branch block, unspecified; F41.9 Anxiety disorder, unspecified; K21.9 Gastro-esophageal reflux disease without esophagitis; Z79.01 Long term (current) use of anticoagulants; Z79.899 Other long term (current) drug therapy; Z95.810 Presence of automatic (implantable) cardiac defibrillator
CPT/HCPCS: 71045; 80048; 83880; 84484; 85025; 93005; 99285; A4216

== ENCOUNTER 2022-10-12 06:52 | Emergency (ER) | payer MEDICAID, SELFPAY ==
[2022-10-12 06:53] VITALS: BP 145/84; PULSE 101; RESP 18; TEMP 36.8; O2SAT 95; BMI 39.7
--- NOTE | 2022-10-12 07:20 | CT_ITS ---
STUDY: CT ABDOMEN AND PELVIS WITH CONTRAST REASON FOR EXAM: Male, 56 years old. Lower abdominal pain RADIATION DOSAGE (If Supplied By Facility): CTDIvol = ( 23.53 ) mGy, DLP = ( 1825.07 ) mGycm TECHNIQUE: Transaxial images were obtained from the dome of the diaphragm to the symphysis pubis without oral contrast. IV 100mL Isovue-300 was administered. Sagittal and coronal images were reconstructed. Individualized dose optimization techniques were used for this CT. COMPARISON: None. FINDINGS: Chronic interstitial changes in the lung bases with small bilateral pleural effusions, right greater than left. There has been a remote CABG. Fatty infiltration of liver is noted without a discrete lesion. Normal gallbladder and extrahepatic biliary system. Normal spleen. Normal pancreas. Normal bilateral adrenal glands. Left kidney is free of obstructive uropathy, or suspicious solid lesion. The right kidney shows hydronephrosis and hydroureter with perinephric and periureteral inflammatory stranding. Findings due to a 5 mm stone in the proximal right ureter seen on axial image 53 and coronal recon image 78. The right ureter distal to the stone is of normal course and caliber. Normal visualized stomach. Normal small intestine. Scattered colonic diverticula, no CT evidence of acute diverticulitis. The appendix is visualized and appears normal. Appendix seen on coronal recon images 70 through 79 Normal abdominal aorta. Normal inferior vena cava. Normal retroperitoneum. Bladder is collapsed around a [place] catheter. Normal abdominal wall. Degenerative bony changes noted in the lumbar spine and pelvis. Surgical hardware in the right pelvis free of complication CT/Abdomen/Pelvis W IV Cont ONLY IMPRESSION: There is a 5 mm calcification the proximal right ureter causing right-sided hydronephrosis and hydroureter with perinephric and periureteral inflammatory stranding. Fatty liver, no discrete lesion Sigmoid diverticulosis, no CT evidence of acute diverticulitis Degenerative bony changes Electronically Signed: Mahesh Smith MD at 8:37 EDT ,
--- NOTE | 2022-10-12 07:21 | EDS_ITS ---
HPI HPI - GI History of Present Illness Chief Complaint: Abd Pain Detail of Chief Complaint: Lower abdominal pain and difficulty urinating. Informant: patient Abdominal Pain/Flank Pain Onset: Today and Yesterday Context: Gradual Onset Timing: Continuous Quality: Burning and Cramping Location: - (Lower abdomen) Current Severity: Mild Maximum Severity: Mild Worsened by: Nothing Relieved by: - (Obregon catheter improved his symptoms but he still having pain.) Nausea/Vomiting/Emesis GI Symptom: Positive for Nausea and Vomiting Onset: Today Severity: Mild Diarrhea/Melena/Hematochezia GI Symptom: Positive for - (Constipation); Negative for Diarrhea, Melena or Hematochezia Associated Symptoms Associated Symptoms: Negative for Dysuria, Frequency, Hematuria or Urgency Narrative Narrative: 56-year-old male history of hypertrophic cardiomyopathy, A-fib with a ablation done yesterday at the [facility] and a history of a defibrillator. No prior abdominal surgeries. Said last night around 830 after eating dinner he was having lower abdominal pain. He has had difficulty urinating since the procedure. Today he started having nausea and vomiting and threw up 6 times. H e believes he has gained 12 pounds in several hours. Denies dysuria. Denies fever. Prior similar symptoms: Yes Recent Illness/Hospitalization: No PFSH [facility] Medical History Atrial fibrillation Atrial fibrillation CHF (congestive heart failure) Hypertrophic obstructive cardiomyopathy Pacemaker Home Medications apixaban 5 mg tablet 5 mg PO BID 05/29/19 [History Last Taken Unknown] albuterol sulfate 90 mcg/actuation aerosol inhaler 1 - 2 puff inhalation Q4H PRN PRN Wheezing ##1 06/28/20 [Rx Last Taken Unknown] levofloxacin 750 mg tablet 750 mg PO DAILY #7 tabs 06/28/20 [Rx Last Taken Unknown] furosemide 40 mg tablet (Lasix) 40 mg PO DAILY #7 tabs 06/15/21 [Rx Last Taken Unknown] doxycycline monohydrate 100 mg capsule 100 mg PO BID #20 CAPSULES 08/25/22 [Rx Last Taken Unknown] lansoprazole 30 mg capsule,delayed release (Prevacid) 30 mg PO DAILY #14 caps 10/02/22 [Rx Last Taken Unknown] lorazepam 0.5 mg tablet (Ativan) 0.5 mg PO DAILY PRN anxiety #7 tabs 10/02/22 [Rx Last Taken Unknown] hydrocodone-acetaminophen 5-325mg 5mg-325mg 1 tab PO Q4H PRN PRN Pain 2 days #10 TABLETS 10/12/22 [Rx Last Taken Unknown] Allergy/AdvReac Type Severity Reaction Status Date / Time cat dander Allergy Other Verified 09/17/22 08:42 Surgical History History of open heart surgery History of repair of hip fracture Social History Smoking Status: Never smoker ROS ROS ED ROS Narrative Abdominal pain, lower. Nausea and vomiting. Review of Systems ROS Unobtainable: Denies due to encephalopathy Constitutional Constitutional ED: Denies chills or fever(s) ENT ENT ED: Denies ear pain Cardiovascular Cardiovascular: Denies chest pain Respiratory/Chest Respiratory/Chest: Denies cough or dyspnea Gastrointestinal Gastrointestinal: Reports abdominal pain, constipation, nausea and vomiting; Denies diarrhea or melena Genitourinary Genitourinary ED: Denies dysuria or hematuria Musculoskeletal Musculoskeletal: Denies arthralgias Neurologic Neurologic: Denies headache(s) Psychiatric Psychiatric: Denies anxiety Endocrine Endocrinology: Denies polydipsia Hematologic/Lymphatic Hematologic/Lymphatic: Denies easy bleeding Allergic/Immunologic Allergic/Immunologic ED: Denies mouth swelling EXAM Physical Exam Narrative Exam Narrative: 56-year-old male vital signs are stable afebrile. He does not look septic or toxic. H EENT exam unremarkable. Neck nontender. Lungs clear to auscultation bilaterally. Heart regular rhythm rate of about 100 no murmur. Chest wall nontender. Abdomen soft tender in the lower abdomen. Currently nondistended but the nurses of already placed a Obregon catheter and got about 500 cc of clear urine out. Moving all 4 extremities. Calves are nontender there is no edema. Neurologically is awake and alert with no focal motor deficits. Const Vital Signs: 10/12/22 06:53 10/12/22 08:41 Temperature 98.2 F Temperature Source Temporal Pulse Rate 101 H Respiratory Rate 18 Blood Pressure 145/84 H Blood Pressure Mean 104 Pulse Ox 95 95 Oxygen Delivery Method Room Air Room Air Positive well nourished, well developed and obese; Negative for cachectic, contractures or unkempt General Appearance ED: well developed and NAD; Negative for unkempt, cachectic, contractures or pallor Nutritional Appearance: obese; Negative for cachectic HEENT Reports moist mucous membranes normocephalic and atraumatic; Negative for trauma or tenderness Eyes PERRL and EOMs intact bilaterally General Eye ED: Negative for pale conjunctiva or scleral icterus Neck no lymphadenopathy, supple and no JVD General: Negative for tenderness Carotids: Negative for other Lymph Lymphatic: Negative for other Resp normal respiratory effort and clear to auscultation bilaterally Effort and Inspection: Negative for respiratory distress Auscultation: Negative for rales, rhonchi or wheezes Cardio regular rate, regular rhythm, S1 normal heart sound, S2 normal heart sound and no murmurs GI non-distended and no masses; Negative for non-tender Inspection: Negative for abdominal distention Auscultation: normoactive bowel sounds Palpation: soft and tender; Negative for guarding, rigid, hernia, mass, pulsatile mass or rebound tenderness present Back/Spine no CVA tenderness General Back: Negative for CVA tenderness Cervical Spine: Negative for cervical spine tenderness Extremity full ROM General Extremety ED: Negative for edema or tenderness General Extremity: Negative for edema Neuro CN's II-XII intact bilaterally and moves all extremities Sensorium / Orientation: alert, oriented to person, oriented to place and oriented to time; Negative for orientation impaired or confused Motor Exam: strength 5/5 throughout Psych mental status grossly normal and thought process normal Appearance: Negative for unkempt Attitude: No agitated Mood & Affect: anxious; Negative for depressed or tearful Skin no wounds General Skin Exam: Negative for jaundice or pallor Lesions: no lesions Rashes: no rashes Trauma: Negative for abrasion Nails: Negative for discolored MDM MDM MDM Narrative Medical decision making narrative: 56-year-old male with significant cardiac history underwent ablation yesterday. Clinically he was having urinary retention nurses placed a Obregon catheter improved his symptoms but he still having abdominal pain. He has never had any abdominal surgeries. I went to go a CAT scan and the labs. We given Zofran for nausea. EKG due to his history of a dysrhythmia. Does not currently need anything for pain. Differential could be urinary retention versus diverticulitis versus other etiologies. Clinically does not appear to be appendicitis or gallbladder disease. Repeat exam patient is doing well at 9:35 AM. Discussed test results with both the patient and his brother who is in the room. Patient was told he has a right-sided 5 mm kidney stone. Fluids. Follow-up with urology as needed. Fluids and fiber. He will be placed on limited Windsor for his kidney stone. History & Record Review Discussion w/independent historian: Patient Lab Data Attestation: I reviewed the patient's lab results. Lab results narrative: CBC shows an elevated white count of 21,500. H&H of 15 and 43. Platelets 316. Urinalysis is negative. No white cells, nor red cells nor bacteria nor nitrates. Electrolytes show sodium of 128. Gap is 6. BUN of 33 creatinine 1.62. Liver enzymes are unremarkable. Lipase normal at 148. Labs: Laboratory Results - last 24 hr 10/12/22 10/12/22 10/12/22 07:04 08:01 08:01 WBC 21.5 H RBC 4.74 Hgb 15.0 Hct 43.6 MCV 92.0 MCH 31.6 MCHC 34.4 RDW Std Deviation 45.6 H RDW Coeff of Cassia 13.5 Plt Count 316 MPV 10.8 Immature Gran % (Auto) 0.700 Neut % (Auto) 91.7 H Lymph % (Auto) 2.2 L [place] % (Auto) 5.2 Eos % (Auto) 0.0 Baso % (Auto) 0.2 Absolute Neuts (auto) 19.7 H Absolute Lymphs (auto) 0.48 L Nucleated RBC % 0 Differential Comment COMMENT Sodium 128 L Potassium 5.0 Chloride 98 Carbon Dioxide 24.0 Anion Gap 6 BUN 33 H Creatinine 1.62 H Estim Creat Clear Calc 57.54 Est GFR (MDRD) Af Amer 57 L Est GFR (MDRD) Non-Af 47 L BUN/Creatinine Ratio 20.4 H Glucose 122 H Calcium 9.4 Total Bilirubin 1.10 H AST 56 H ALT 51 Alkaline Phosphatase 67 Total Protein 7.8 Albumin 3.8 Globulin 4.0 Albumin/Globulin Ratio 1.0 Lipase 148 Urine Color Straw Urine Clarity Clear Urine pH 6.5 Ur Specific [place] 1.010 Urine Protein Negative Urine Glucose (UA) Normal Urine Ketones Negative Urine Occult Blood 50 H Urine Nitrite Negative Urine Bilirubin Negative Urine Urobilinogen Normal Ur Leukocyte Esterase Negative Urine RBC 0-5 SEEN Urine WBC 0 SEEN Ur Squamous Epith Cells 0 SEEN Urine Bacteria 0 SEEN Urine Mucus 0 SEEN Radiography Diagnostic Testing: Clinical Impression(s) from Imaging Studies Abdomen/Pelvis CT 10/12/22 07:20 IMPRESSION: There is a 5 mm calcification the proximal right ureter causing right-sided hydronephrosis and hydroureter with perinephric and periureteral inflammatory stranding. Fatty liver, no discrete lesion Sigmoid diverticulosis, no CT evidence of acute diverticulitis Degenerative bony changes Electronically Signed: Mahesh Smith MD at 8:37 EDT Reading Location ID and State: [facility] / [place] , Service support , Discharge Plan Triage Chief Complaint: Abd Pain ED Provider: Edi Milan Dx/Rx/DC Orders Clinical Impression: Kidney stone on right side, Acute constipation, Acute hyponatremia, Acute renal insufficiency, History of atrial fibrillation, Chronic anticoagulation Instructions: ED Kidney Stone w/ Colic Prescriptions: New hydrocodone-acetaminophen 5-325 mg tablet 1 tab PO Q4H PRN PRN (Reason: Pain) 2 Days Qty: 10 0RF No Action apixaban 5 MG tablet 5 mg PO BID Label Comments: Take 1 tablet by mouth twice daily. levofloxacin 750 MG tablet 750 mg PO DAILY Qty: 7 0RF albuterol sulfate 1 INHALER inhaler 1 - 2 puff INHALATION Q4H PRN PRN (Reason: Wheezing) Qty: 1 0RF furosemide [Lasix] 40 mg tablet 40 mg PO DAILY Qty: 7 0RF doxycycline monohydrate 100 mg capsule 100 mg PO BID Qty: 20 0RF lansoprazole [Prevacid] 30 mg capsule,delayed release(DR/EC) 30 mg PO DAILY Qty: 14 0RF lorazepam [Ativan] 0.5 mg tablet 0.5 mg PO DAILY PRN (Reason: anxiety) Qty: 7 0RF Primary Care Provider: Carlos Malave Referrals: Honorio Haywood MD [Med Staff - Active Staff] - As Needed Care Physician,No Primary [Non-Staff] - Activity Restrictions/Additional Instructions: You have a kidney stone on the right about 5 mm. It should pass. Plenty of fluids. Windsor for pain for the kidney stone. However it is a pain medication and can make the constipation worse. For the constipation make sure you are drinking plenty of water, walking, fruits, vegetables and fiber. Also stool softener you can get [id number] like Colace. Follow-up with the urologist as needed but the stone is 5 mm and should pass. Strain your urine looking for the stone. Disposition Disposition: Home, Self Care
[2022-10-12 07:39] LABS: Bacteria 0 SEEN /hpf (None Seen); Mucous, Urine 0 SEEN /hpf (<or=2+); Squamous Epithelial Cells - UA 0 SEEN /hpf (0-5); White Blood Cells 0 SEEN /hpf (0-5)
[2022-10-12] MEDS: Ondansetron 4 MG/2 ML Vial IV (07:58)
[2022-10-12 08:07] LABS: Absolute Lymphocyte Count 0.48 X10^3/uL (0.83-4.51); Absolute Neutrophil Count 19.7 X10^3/uL (2.0-7.7); Basophil# 0.04 X10^3/uL; Basophil% 0.2 % (0-1); Hematocrit 43.6 % (40-54); Lymphocyte # 0.48 X10^3/ul (0.83-4.51); Lymphocyte % 2.2 % (19-41); Mean Corp Hgb Conc 34.4 g/dL (32-36); Mean Corpuscular Hgb 31.6 pg (27.0-32.0); Mean Platelet Vol. 10.8 fl (6.2-12.0); Monocyte# 1.11 X10^3/uL; Monocyte% 5.2 % (0-10); NRBC Flagged by Analyzer 0 % (0-5); Neutrophil # 19.72 X10^3/uL (2.7-7.7); Neutrophil % 91.7 % (47-70); POSITIVE DIFFERENTIAL YES; Platelet Count 316 K/mm3 (150-450); RBC Distribution Width CV 13.5 % (11.6-14.6); RBC Distribution Width SD 45.6 fl (35.1-43.9); Red Blood Count 4.74 M/mm3 (4.6-6.2); White Blood Count 21.5 K/mm3 (4.4-11.0)
[2022-10-12 08:10] LABS: Differential Indicated SCAN CRITERIA MET
[2022-10-12 08:10] LABS: Color, Urine Straw (Yellow); Glucose, Dipstick Normal (Normal); Ketone-Dipstick Negative (Negative); Leukocyte Esterase-Dipstick Negative /ul (Negative); Nitrite-Dipstick Negative (Negative); Occult Blood-Urine 50 /ul (Negative); Protein-Dipstick Negative (Negative); Urine Bilirubin Dipstick Negative (Negative); Urine Clarity Clear (Clear); Urine Urobilinogen Normal (Normal); Urine pH 6.5 (5.0 - 8.0)
[2022-10-12 08:17] LABS: Red Blood Cells-Urine 0-5 SEEN /hpf (0-5)
[2022-10-12 08:23] LABS: BUN 33 mg/dL (7-18); Creatinine, Serum 1.62 mg/dL (0.70-1.30); EST Glomerular Filtration Rate 47 mL/min (>60); Estimated Creatinine Clearance 57.54 ml/min; Glucose 122 mg/dL (74-106)
[2022-10-12 08:24] LABS: AST(SGOT) 56 U/L (15-37); Alanine Aminotransfer ALT/SGPT 51 U/L (16-61); Albumin, Serum 3.8 g/dL (3.2-5.0); Alkaline Phosphatase 67 U/L (45-117); Anion Gap 6 (5-15); BUN/Creat Ratio 20.4 RATIO (10-20); Calcium,Total 9.4 mg/dL (8.5-10.1); Chloride 98 mmol/L (98-107); Est Glom Filt Rate - Afr Amer 57 mL/min (>60); Lipase 148 U/L (73-393); Protein, Total 7.8 g/dL (6.4-8.2); Sodium Level 128 mmol/L (136-145)
[2022-10-12 08:41] VITALS: O2SAT 95
[2022-10-12 10:04] VITALS: BP 110/74; PULSE 95; RESP 16; O2SAT 99
== END 2022-10-12 10:05 | disposition home or self-care (01) ==
PROVIDERS: Emergency Provider Emergency Medicine; PCP Internal Medicine; Visit Provider Emergency Medicine
DX: N20.0 Calculus of kidney (principal); I50.9 Heart failure, unspecified; I48.91 Unspecified atrial fibrillation; E87.1 Hypo-osmolality and hyponatremia; N28.89 Other specified disorders of kidney and ureter; K59.00 Constipation, unspecified; E66.9 Obesity, unspecified; Z79.01 Long term (current) use of anticoagulants
CPT/HCPCS: 51702; 74177; 80053; 81001; 83690; 85025; 93005; 99285; J2405; Q9967; A4216

== ENCOUNTER 2022-10-13 19:15 | Inpatient (IN) | payer MEDICAID, SELFPAY ==
[2022-10-13] VITALS (8 sets, daily range): BP systolic 95–113; BP diastolic 66–82; PULSE 84–97; RESP 18–30; TEMP 36.3–38.6; O2SAT 91–97; BMI 39.7; BMI 39.2
--- NOTE | 2022-10-13 19:49 | EKG12_ITS ---
Test Reason : AMS Blood Pressure : / mmHG Vent. Rate : 109 BPM Atrial Rate : 109 BPM P-R Int : 112 ms QRS Dur : 194 ms QT Int : 422 ms P-R-T Axes : 090 -78 097 degrees QTc Int : 568 ms Atrial-sensed ventricular-paced rhythm with Premature atrial complexes with Aberrant conduction Abnormal ECG Confirmed by ALEJANDRA MOREJON ([id number]), newspaper editor MABEL OCONNOR ([id number]) on 10/19/2022 7:31:53 AM Referred By: Confirmed By:ALEJANDRA MOREJON
--- NOTE | 2022-10-13 19:52 | EDS_ITS ---
HPI History of Present Illness Chief Complaint: Alt LOC Detail of Chief Complaint: Confusion, vomiting coffee-ground material and fever 101.5 Informant: family and EMS Onset/Context/Timing Onset: - (Uncertain) Current Severity: Moderate Maximum Severity: Moderate Worsened by: Unknown Relieved by: Unknown Associated Symptoms Associated Symptoms: cough Length of loss of consciousness: Not applicable Narrative Narrative: Patient is a 56-year-old male who underwent ablation at [facility]. He is on apixaban. Patient brother had him brought to the hospital because of disorientation. This is not normal for him. History is limited because patient is disoriented. He has slow mentation. Uncertain if he is or is not on antibiotics. Prior similar symptoms: No Recent Illness/Hospitalization: Yes [facility] Medical History Atrial fibrillation Atrial fibrillation CHF (congestive heart failure) Hypertrophic obstructive cardiomyopathy Pacemaker Home Medications apixaban 5 mg tablet 5 mg PO BID 05/29/19 [History Last Taken Unknown] albuterol sulfate 90 mcg/actuation aerosol inhaler 1 - 2 puff inhalation Q4H PRN PRN Wheezing ##1 06/28/20 [Rx Last Taken Unknown] levofloxacin 750 mg tablet 750 mg PO DAILY #7 tabs 06/28/20 [Rx Last Taken Unknown] furosemide 40 mg tablet (Lasix) 40 mg PO DAILY #7 tabs 06/15/21 [Rx Last Taken Unknown] doxycycline monohydrate 100 mg capsule 100 mg PO BID #20 CAPSULES 08/25/22 [Rx Last Taken Unknown] lansoprazole 30 mg capsule,delayed release (Prevacid) 30 mg PO DAILY #14 caps 10/02/22 [Rx Last Taken Unknown] lorazepam 0.5 mg tablet (Ativan) 0.5 mg PO DAILY PRN anxiety #7 tabs 10/02/22 [Rx Last Taken Unknown] hydrocodone-acetaminophen 5-325mg 5mg-325mg 1 tab PO Q4H PRN PRN Pain 2 days #10 TABLETS 10/12/22 [Rx Last Taken Unknown] Allergy/AdvReac Type Severity Reaction Status Date / Time cat dander Allergy Other Verified 09/17/22 08:42 Surgical History History of open heart surgery History of repair of hip fracture Social History Smoking Status: Never smoker ROS ROS ED Review of Systems ROS Unobtainable: due to mental status Constitutional Constitutional ED: Reports fever(s) Respiratory/Chest Respiratory/Chest: Reports cough Gastrointestinal Gastrointestinal: Reports vomiting EXAM Physical Exam Const Vital Signs: 10/13/22 19:16 10/13/22 19:33 10/13/22 20:15 Temperature 97.5 F L 101.5 F H Temperature Source Temporal Oral Pulse Rate 91 93 Respiratory Rate 18 30 H Blood Pressure 113/82 H 105/66 Blood Pressure Mean 92 79 Pulse Ox 94 97 Oxygen Delivery Method Room Air 10/13/22 20:11 Temperature Temperature Source Pulse Rate Respiratory Rate Blood Pressure Blood Pressure Mean Pulse Ox 95 Oxygen Delivery Method Room Air Positive well nourished, well developed and obese Constitutional Narrative: Patient does not appear well. Mentation is slow. He is febrile. He is not hypoxic. He does not have acrocyanosis. Patient is noted to have coffee-ground emesis on his lower lip and manzo. General Appearance ED: well developed; Negative for NAD or pallor Nutritional Appearance: obese HEENT normocephalic and atraumatic; Negative for cyanosis of lips/distal nose Eyes PERRL and EOMs intact bilaterally General Eye ED: Negative for pale conjunctiva or scleral icterus Neck full ROM, no lymphadenopathy, supple and no JVD Chest Wall Chest Narrative: Chest wall appears normal. Resp Resp Narrative: Patient is tachypneic breathing 31 times a minute not 18 as documented by nursing staff. There is no use of accessory muscles or retractions. Patient has rales at the right base with expiratory wheezing noted at the right and left base. There is decreased air movement bilaterally. Breath sounds are symmetric. Cardio regular rate, regular rhythm, S1 normal heart sound and S2 normal heart sound GI non-tender, non-distended and no masses Palpation: soft Back/Spine no CVA tenderness Thoracic Spine / Upper Back: Negative for thoracic spinal tenderness Lumbar Spine / Lower Back: Negative for lumbar spinal tenderness Neuro No oriented x3 and CN's II-XII intact bilaterally Sensorium / Orientation: oriented to person and oriented to place; Negative for alert or oriented to time Speech: speech normal Psych Psych Narrative: Patient has altered mental status and difficult to assess mood and affect. Skin General Skin Exam: Negative for jaundice or pallor Lesions: no lesions Rashes: no rashes MDM MDM MDM Narrative Medical decision making narrative: With recent admission to [facility] for ablation and now febrile with vomiting concern patient may have aspirated. Because of high incidence of MRSA at [facility] will treat with Zosyn and vancomycin. Sepsis work-up was undertaken. NG was placed to determine if patient is still actively bleeding. Once family arrives we will speak to them. History & Record Review Additional record(s) reviewed:: Prior outpatient record, Prior ED visit (She was seen yesterday constipation. He has been seen for cardiomyopathy/CHF.), Prior labs and Other (Records from [facility] not available on [facility].) Lab Data Attestation: I reviewed the patient's lab results. Lab results narrative: White count is elevated with a shift. White count was higher yesterday. Coags are abnormal due to the fact that patient is on a Bactroban. Patient has acute hyponatremia with a sodium 121 and chloride of 88. Yesterday it was 128 and week prior was 136. Creatinine was normal is now abnormal at 2.17 with a BUN of 38. Glucose is elevated 133 with a normal CO2 and anion gap. Total bili slightly elevated 1.6. AST and ALT are elevated at 48 and 70 respectively. Lactate is normal at 1.7. Urinalysis is for blood and and leukoesterase on macro with no nitrates. There is pyuria with rare bacteria. Labs: Laboratory Results - last 24 hr 10/13/22 10/13/22 10/13/22 19:58 19:58 19:58 WBC 16.7 H RBC 4.44 L Hgb 13.9 Hct 41.0 MCV 92.3 MCH 31.3 MCHC 33.9 RDW Std Deviation 46.9 H RDW Coeff of Cassia 13.8 Plt Count 135 L MPV 11.2 Immature Gran % (Auto) 1.400 H Neut % (Auto) 85.6 H Lymph % (Auto) 3.2 L [place] % (Auto) 9.6 Eos % (Auto) 0.0 Baso % (Auto) 0.2 Absolute Neuts (auto) 14.3 H Absolute Lymphs (auto) 0.53 L Nucleated RBC % 0 Differential Comment SCANNED Diff Path Review May foll PT 22.4 H INR 2.0 APTT 42.9 H Sodium 121 L Potassium 4.0 Chloride 88 L Carbon Dioxide 24.0 Anion Gap 9 BUN 38 H Creatinine 2.17 H Estim Creat Clear Calc 42.96 Est GFR (MDRD) Af Amer 41 L Est GFR (MDRD) Non-Af 34 L BUN/Creatinine Ratio 17.5 Glucose 133 H Lactic Acid Calcium 8.7 Total Bilirubin 1.60 H AST 48 H ALT 70 H Alkaline Phosphatase 77 Total Protein 7.0 Albumin 3.2 Globulin 3.8 Albumin/Globulin Ratio 0.8 L Urine Color Urine Clarity Urine pH Ur Specific [place] Urine Protein Urine Glucose (UA) Urine Ketones Urine Occult Blood Urine Nitrite Urine Bilirubin Urine Urobilinogen Ur Leukocyte Esterase Urine RBC Urine WBC Ur Squamous Epith Cells Urine Bacteria Urine Mucus 10/13/22 10/13/22 19:58 20:00 WBC RBC Hgb Hct MCV MCH MCHC RDW Std Deviation RDW Coeff of Cassia Plt Count MPV Immature Gran % (Auto) Neut % (Auto) Lymph % (Auto) [place] % (Auto) Eos % (Auto) Baso % (Auto) Absolute Neuts (auto) Absolute Lymphs (auto) Nucleated RBC % Differential Comment Diff Path Review PT INR APTT Sodium Potassium Chloride Carbon Dioxide Anion Gap BUN Creatinine Estim Creat Clear Calc Est GFR (MDRD) Af Amer Est GFR (MDRD) Non-Af BUN/Creatinine Ratio Glucose Lactic Acid 1.7 Calcium Total Bilirubin AST ALT Alkaline Phosphatase Total Protein Albumin Globulin Albumin/Globulin Ratio Urine Color Yellow Urine Clarity Clear Urine pH 5.0 Ur Specific [place] 1.015 Urine Protein 100 H Urine Glucose (UA) Normal Urine Ketones Negative Urine Occult Blood 150 H Urine Nitrite Negative Urine Bilirubin Negative Urine Urobilinogen Normal Ur Leukocyte Esterase 500 H Urine RBC 0-5 SEEN Urine WBC 10-25 SEEN Ur Squamous Epith Cells 0 SEEN Urine Bacteria RARE Urine Mucus 0 SEEN Radiography Chest X-Ray - ED: 1 View (Single view of the KUB reveals the NG to be in proper position.) and Read by ED Physician (Chest x-ray reveals bilateral interstitial infiltrates. Radiology also wrote superimposed CHF. With patient having temperature of 101.5 elevated white count suspect his interstitial fluffiness is due to atypical pneumonia versus CHF.) Diagnostic Testing: Clinical Impression(s) from Imaging Studies Chest X-Ray 10/13/22 20:20 IMPRESSION: Multifocal pneumonia superimposed on CHF. Electronically Signed: Jj Hutchinson MD at 20:48 EDT , KUB X-Ray 10/13/22 20:20 IMPRESSION: NG tube terminates over the gastric body with sidehole below the diaphragm. Electronically Signed: Jj Hutchinson MD at 20:49 EDT , EKG Initial EKG: Interpretation: Paced (Atrial sensed ventricular paced rhythm with a rate of 109. WV interval is 112 ms. Cures duration 194 ms. QT duration 422 ms.) Prior: Unchanged Critical Care Time Critical Care Time: Yes Critical care time (excluding procedures): 30-74 minutes (33), Including time spent: (History, physical, documentation, interpretation laboratory is also initiation of therapy for severe sepsis, review of prior records), Discussing w/Consultants and Arranging Admission or Transfer Discharge Plan Triage Chief Complaint: Alt LOC ED Provider: Monico Edgaro Dx/Rx/DC Orders Clinical Impression: Severe sepsis with acute organ dysfunction, Acute hyponatremia, Chronic anticoagulation, Bilateral pneumonia, Infectious encephalopathy, DENNIS (acute kidney injury), Acute upper GI bleed Prescriptions: No Action apixaban 5 MG tablet 5 mg PO BID Label Comments: Take 1 tablet by mouth twice daily. levofloxacin 750 MG tablet 750 mg PO DAILY Qty: 7 0RF albuterol sulfate 1 INHALER inhaler 1 - 2 puff INHALATION Q4H PRN PRN (Reason: Wheezing) Qty: 1 0RF furosemide [Lasix] 40 mg tablet 40 mg PO DAILY Qty: 7 0RF doxycycline monohydrate 100 mg capsule 100 mg PO BID Qty: 20 0RF lansoprazole [Prevacid] 30 mg capsule,delayed release(DR/EC) 30 mg PO DAILY Qty: 14 0RF lorazepam [Ativan] 0.5 mg tablet 0.5 mg PO DAILY PRN (Reason: anxiety) Qty: 7 0RF hydrocodone-acetaminophen 5-325 mg tablet 1 tab PO Q4H PRN PRN (Reason: Pain) 2 Days Qty: 10 0RF Primary Care Provider: Carlos Malave Referrals: Carlos Malave MD [Primary Care Provider] - Disposition Disposition: Acute Care Hospital [facility]
[2022-10-13] MEDS: Oxymetazoline 0.05% 1 SPRAY SPRAY.BTL 2 SPRAY NASAL (20:04)
[2022-10-13] MEDS: Ondansetron 4 MG/2 ML Vial IV (20:04)
[2022-10-13 20:09] LABS: Mucous, Urine 0 SEEN /hpf (<or=2+); Squamous Epithelial Cells - UA 0 SEEN /hpf (0-5)
[2022-10-13 20:13] LABS: Absolute Lymphocyte Count 0.53 X10^3/uL (0.83-4.51); Absolute Neutrophil Count 14.3 X10^3/uL (2.0-7.7); Basophil# 0.03 X10^3/uL; Basophil% 0.2 % (0-1); Hemoglobin 13.9 g/dL (13.0-16.5); Lymphocyte # 0.53 X10^3/ul (0.83-4.51); Lymphocyte % 3.2 % (19-41); Mean Corp Hgb Conc 33.9 g/dL (32-36); Mean Corpuscular Hgb 31.3 pg (27.0-32.0); Mean Corpuscular Volume 92.3 fL (80-94); Mean Platelet Vol. 11.2 fl (6.2-12.0); Monocyte# 1.61 X10^3/uL; Monocyte% 9.6 % (0-10); NRBC Flagged by Analyzer 0 % (0-5); Neutrophil # 14.31 X10^3/uL (2.7-7.7); Neutrophil % 85.6 % (47-70); POSITIVE DIFFERENTIAL YES; Platelet Count 135 K/mm3 (150-450); RBC Distribution Width CV 13.8 % (11.6-14.6); RBC Distribution Width SD 46.9 fl (35.1-43.9); Red Blood Count 4.44 M/mm3 (4.6-6.2); White Blood Count 16.7 K/mm3 (4.4-11.0)
[2022-10-13 20:15] LABS: Differential Indicated SCAN CRITERIA MET
[2022-10-13 20:19] LABS: Color, Urine Yellow (Yellow); Glucose, Dipstick Normal (Normal); Ketone-Dipstick Negative (Negative); Leukocyte Esterase-Dipstick 500 /ul (Negative); Nitrite-Dipstick Negative (Negative); Occult Blood-Urine 150 /ul (Negative); Protein-Dipstick 100 mg/dl (Negative); Specific Gravity, Urine 1.015 (1.002-1.030); Urine Bilirubin Dipstick Negative (Negative); Urine Clarity Clear (Clear); Urine Urobilinogen Normal (Normal)
--- NOTE | 2022-10-13 20:20 | RAD_ITS ---
INDICATION: NG Insertion -- Irrigate until clear EXAMINATION/TECHNIQUE: X-RAY - XR Abdomen 1 View COMPARISON: 05/23/2023 CT RAD/Abdomen Single View (Portable) IMPRESSION: NG tube terminates over the gastric body with sidehole below the diaphragm. Electronically Signed: Jj Hutchinson MD at 20:49 EDT ,
--- NOTE | 2022-10-13 20:20 | RAD_ITS ---
INDICATION: Fever, cough, wheezing EXAMINATION/TECHNIQUE: X-RAY - XR Chest 1 View COMPARISON: 10/02/2022 FINDINGS: LINES/DEVICES: Dilute cardiac device. LUNGS: Unchanged bilateral pulmonary infiltrates. MEDIASTINUM AND CARDIOVASCULAR STRUCTURES: Moderate cardiomegaly and pulmonary vascular enlargement. RAD/Chest 1 View (Portable) IMPRESSION: Multifocal pneumonia superimposed on CHF. Electronically Signed: Jj Hutchinson MD at 20:48 EDT ,
[2022-10-13 20:26] LABS: Prothrombin Time (Protime)PT. 22.4 SECONDS (11.7-14.9)
[2022-10-13 20:27] LABS: Partial Thromboplast Time 42.9 Seconds (24.1-36.2)
[2022-10-13 20:30] LABS: ALB/GLOB Ratio 0.8 RATIO (0.9-2.4); AST(SGOT) 48 U/L (15-37); Alanine Aminotransfer ALT/SGPT 70 U/L (16-61); Albumin, Serum 3.2 g/dL (3.2-5.0); Alkaline Phosphatase 77 U/L (45-117); Anion Gap 9 (5-15); BUN 38 mg/dL (7-18); BUN/Creat Ratio 17.5 RATIO (10-20); Calcium,Total 8.7 mg/dL (8.5-10.1); Chloride 88 mmol/L (98-107); Creatinine, Serum 2.17 mg/dL (0.70-1.30); EST Glomerular Filtration Rate 34 mL/min (>60); Est Glom Filt Rate - Afr Amer 41 mL/min (>60); Estimated Creatinine Clearance 42.96 ml/min; Globulin 3.8 g/dL (2.2-4.2); Glucose 133 mg/dL (74-106); Sodium Level 121 mmol/L (136-145)
[2022-10-13 20:31] LABS: Red Blood Cells-Urine 0-5 SEEN /hpf (0-5); White Blood Cells 10-25 SEEN /hpf (0-5)
[2022-10-13 20:32] LABS: Bacteria RARE /hpf (None Seen)
[2022-10-13 20:32] LABS: Lactic Acid 1.7 mmol/L (0.4-1.9)
[2022-10-13 21:00] LABS: Differential Comment SCANNED
--- NOTE | 2022-10-13 21:18 | HP.PCM.HOS_ITS ---
HPI - General General Date of Admission: 10/13/22 Date of Service: 10/13/22 Chief Complaint: Altered mental status HPI Narrative NEISHA ORTIZ, is a 56 M with a significant history of HOCM status post myectomy; congestive heart failure on Lasix; PPM; who had ablation for A-fib at the [facility] on 10/11/2022 presented to emergency department via squad for altered mental status that started on the same day of presentation. At the night of patient's ablation on 10/11/2022 he weighed himself and reports a weight of 285 pounds. The following morning about 3 AM he weighed himself and reported a weight of 296 pounds. Subsequently he took his Lasix. Also patient began to have multiple episodes of vomiting a day after his ab lation that is on 10/12/2022. Reportedly his vomitus was only saliva. Also he had constipation. He came to the emergency department on the same day (10/12/2022) where a CAT scan showed a kidney stone that patient was passing and also a high fecal load. Patient was discharged home and was advised to take stool softeners. With stool softeners he had a blowout of bowel movements. However his brother who is a nurse found the patient was confused and was not answering questions appropriately. Subsequently patient's brother called the ambulance and patient was brought to the emergency department. Reportedly patient was diaphoretic and his forehead was hot. At the emergency department patient was found to have coffee-ground emesis and an NG tube was placed. Of note patient denies shortness of breath or cough. At the emergency department at the time of history taking patient's brother confirmed that patient's mentation had improved. [facility] Medical History Atrial fibrillation Atrial fibrillation CHF (congestive heart failure) Hypertrophic obstructive cardiomyopathy Pacemaker Home Medications apixaban 5 mg tablet 5 mg PO BID AFIB 05/29/19 [History Last Taken Unknown] albuterol sulfate 90 mcg/actuation aerosol inhaler 1 - 2 puff inhalation Q4H PRN PRN Wheezing ##1 06/28/20 [Rx Last Taken Unknown] lorazepam 0.5 mg tablet (Ativan) 0.5 mg PO DAILY PRN anxiety #7 tabs 10/02/22 [Rx Last Taken Unknown] hydrocodone-acetaminophen 5-325mg 5mg-325mg 1 tab PO Q4H PRN PRN Pain 2 days #10 TABLETS 10/12/22 [Rx Last Taken Unknown] furosemide 40 mg tablet (Lasix) 40 mg PO DAILY WATER PILL 10/13/22 [History Last Taken Unknown] lansoprazole 30 mg capsule,delayed release (Prevacid) 30 mg PO DAILY GERD 10/13/22 [History Last Taken Unknown] sertraline 50 mg tablet 50 mg PO DAILY ANXIETY 10/13/22 [History Last Taken Unknown] Allergy/AdvReac Type Severity Reaction Status Date / Time cat dander Allergy Other Verified 09/17/22 08:42 Family History Other Cancer Diabetes Hypertension Kidney disease Surgical History History of open heart surgery History of repair of hip fracture Social History Smoking Status: Never smoker ROS ROS Narrative Pertinent positives and pertinent negatives as noted in HPI. All other systems were reviewed and are negative Vital Signs Vital Signs Vital Signs: 10/13/22 19:16 10/13/22 19:33 10/13/22 20:15 Temperature 97.5 F L 101.5 F H Temperature Source Temporal Oral Pulse Rate 91 93 Respiratory Rate 18 30 H Blood Pressure 113/82 H 105/66 Blood Pressure Mean 92 79 Pulse Ox 94 97 Oxygen Delivery Method Room Air 10/13/22 20:11 Temperature Temperature Source Pulse Rate Respiratory Rate Blood Pressure Blood Pressure Mean Pulse Ox 95 Oxygen Delivery Method Room Air Weight Weight: 136.6 kg Body Mass Index (BMI) 39.7 Physical Exam Narrative Physical exam: General: Middle aged density on, diaphoretic, NG tube in nostrils Head: Normocephalic, atraumatic, no tenderness Eyes: Vision is grossly intact. EOMI ENT, no trauma, moist mucous membranes, no rhinorrhea Neck: Nontender, No thyromegaly. CVS: Regular rate and rhythm. S1-S2 present. No murmur, gallop or rub. Respiratory : Tachypnea; Rales; chest wall nontender Abdomen: Soft, nontender, nondistended, normal bowel sounds, no masses : Deferred Extremities: Nontender full range of motion, no trauma Skin: Normal color, no trauma, abrasions Neuro: Alert, oriented x3. Minimal hesitation in answering questions. Cranial nerves II through XII grossly intact. Psychiatry: Normal mood. Normal affect. Not depressed. Not anxious. Results Lab / Micro Data Result Diagrams: 10/13/22 19:58 10/13/22 19:58 Labs: Laboratory Results - last 24 hr 10/13/22 19:58: WBC 16.7 H, RBC 4.44 L, Hgb 13.9, Hct 41.0, MCV 92.3, MCH 31.3, MCHC 33.9, RDW Std Deviation 46.9 H, RDW Coeff of Cassia 13.8, Plt Count 135 L, MPV 11.2, Immature Gran % (Auto) 1.400 H, Neut % (Auto) 85.6 H, Lymph % (Auto) 3.2 L , [place] % (Auto) 9.6, Eos % (Auto) 0.0, Baso % (Auto) 0.2, Absolute Neuts (auto) 14.3 H, Absolute Lymphs (auto) 0.53 L, Nucleated RBC % 0, Differential Comment SCANNED, Diff Path Review November foll 10/13/22 19:58: PT 22.4 H, INR 2.0, APTT 42.9 H 10/13/22 19:58: Sodium 121 L, Potassium 4.0, Chloride 88 L, Carbon Dioxide 24.0, Anion Gap 9, BUN 38 H, Creatinine 2.17 H, Estim Creat Clear Calc 42.96, Est GFR (MDRD) Af Amer 41 L, Est GFR (MDRD) Non-Af 34 L, BUN/Creatinine Ratio 17.5, Glucose 133 H, Calcium 8.7, Total Bilirubin 1.60 H, AST 48 H, ALT 70 H, Alkaline Phosphatase 77, Total Protein 7.0, Albumin 3.2, Globulin 3.8, Albumin/Globulin Ratio 0.8 L 10/13/22 19:58: Lactic Acid 1.7 10/13/22 20:00: Urine Color Yellow, Urine Clarity Clear, Urine pH 5.0, Ur Specific [place] 1.015, Urine Protein 100 H, Urine Glucose (UA) Normal, Urine Ketones Negative, Urine Occult Blood 150 H, Urine Nitrite Negative, Urine Bilirubin Negative, Urine Urobilinogen Normal, Ur Leukocyte Esterase 500 H, Urine RBC 0-5 SEEN, Urine WBC 10-25 SEEN, Ur Squamous Epith Cells 0 SEEN, Urine Bacteria RARE, Urine Mucus 0 SEEN Radiology Impression Chest X-Ray 10/13/22 20:20 IMPRESSION: Multifocal pneumonia superimposed on CHF. Electronically Signed: Jj Hutchinson MD at 20:48 EDT Reading Location ID and State: [facility] / [place] Tel , Service support , KUB X-Ray 10/13/22 20:20 IMPRESSION: NG tube terminates over the gastric body with sidehole below the diaphragm. Electronically Signed: Jj Hutchinson MD at 20:49 EDT Reading Location ID and State: [facility] / [place] Tel , Service support , Assessment & Plan Assessment/Plan (1) Severe sepsis with acute organ dysfunction: (2) History of atrial fibrillation: (3) Acute hyponatremia: (4) Bilateral pneumonia: (5) Infectious encephalopathy: (6) DENNIS (acute kidney injury): (7) Acute upper GI bleed: PLAN: Plan Sepsis secondary to bilateral aspiration pneumonia The patient presented with sepsis due to (likely aspiration pneumonia) with acute sepsis related organ dysfunction as evidenced by (DENNIS; and encephalopathy). SIRS criteria: Temperature more than 100.9 Fahrenheit (in patient's case a Tmax of 101.5 at the emergency department on presentation) Respiratory rate more than 20 (in patient's case highest of 30 on presentation) Heart rate more than 90 (in patient's case moderate amount of 97 on presentation) WBC more than 12,000 (in patient's case 16,700 on presentation) organ dysfunction: Creatinine more than 2 INR more than 1.5 (INR 2.0 but that could be attributed to patient being on Eliquis for his A-fib) Acute encephalopathy Blood culture x2 was obtained emergency department, follow. Lactic acid is n ormal. SARS-CoV-2 and flu antigen ordered. Legionella urine antigen and should focus urine antigen ordered. DENNIS/dehydration Creatinine of 2.17 on presentation. A day before presentation his creatinine was 1.62. Baseline creatinine is around 1.2 . BUN on presentation was 38; highest BUN so far on record.. His BUN a day before presentation was 33. Hold home Lasix. Gentle IV hydration. Trend BMP. Acute infectious encephalopathy Presents on presentation but improved at the ED. Acute GI bleed Admit to monitored bed on IV fluids H&H every 6 hours Hold home Eliquis. No anticoagulants for DVT prophylaxis Protonix Gastroenterology consult Abnormal urinalysis Urine leukocyte esterase of 500; urine protein of 100; positive urine occult blood; urine WBC 10-25; bacteria rare. No complaint of urinary symptoms. Started on Zosyn for pneumonia. Urine culture is pending. Hypovolemic hyponatremia/hypochloremia His sodium on presentation was 121. Day before presentation sodium was 128. On 10/02/2022 his sodium was 136. Chloride level of 88 (normal 98-1 07) Likely secondary to vomiting and diuretic use. Received fluid bolus at the emergency department. Gentle IV hydration. Trend sodium and CMP. Elevated liver biochemistry His AST on presentation was 48. His AST a day before presentation was 56. ALT on presentation was 70. ALT a day before presentation was 51. Trend CMP. History of A-fib Patient with antidepressant as ventricular paced rhythm. Placed on critical care on telemetry. HOCM/chronic congestive heart failure Unclear type of congestive heart failure. Chronic. Hold home Lasix secondary to DENNIS. Cautious use of IV fluids. DVT prophylaxis: SCD ordered Charges/Coding Visit Charges Inpatient E&M: 95965 Init Hosp L3
[2022-10-14] VITALS (26 sets, daily range): BP systolic 105–134; BP diastolic 76–103; PULSE 76–106; RESP 14–32; TEMP 36.3–36.9; O2SAT 92–100; BMI 39.2
[2022-10-14] MEDS: Ondansetron 4 MG/2 ML Vial IV (00:02)
[2022-10-14] MEDS: 0.9% Normal Saline 1,000 ML 75 ML IV ×2 (00:02→22:02)
[2022-10-14 00:11] LABS: Hematocrit 38.1 % (40-54)
[2022-10-14 00:17] LABS: Sodium Level 123 mmol/L (136-145)
--- NOTE | 2022-10-14 00:20 | PCM.RX.CS ---
Consult Pharmacy has been consulted to manage selected antiobiotic: Vancomycin Type of Consult: New start Suspected Infection: Sepsis Prior Doses of Antibiotics Received/Current Regimen: Medications Vancomycin HCl 1,250 mg/ (Sodium Chloride) 275 mls @ 167 mls/hr IV Q12H RODOLFO Discontinued Medications Vancomycin HCl 2,000 mg/ (Sodium Chloride) 540 mls @ 250 mls/hr IV X1 ONE Stop: 10/13/22 22:05 Last Admin: 10/13/22 23:14 Dose: Infused Labs: Sodium 123 mmol/L (136-145) L 10/13/22 23:55 Potassium 4.0 mmol/L (3.5-5.1) 10/13/22 19:58 Chloride 88 mmol/L (98-107) L 10/13/22 19:58 Carbon Dioxide 24.0 mmol/L (21.0-32.0) 10/13/22 19:58 Anion Gap 9 (5-15) 10/13/22 19:58 BUN 38 mg/dL (7-18) H 10/13/22 19:58 Creatinine 2.17 mg/dL (0.70-1.30) H 10/13/22 19:58 Est GFR (MDRD) Af Amer 41 mL/min (>60) L 10/13/22 19:58 Est GFR (MDRD) Non-Af 34 mL/min (>60) L 10/13/22 19:58 BUN/Creatinine Ratio 17.5 RATIO (10-20) 10/13/22 19:58 Glucose 133 mg/dL (74-106) H 10/13/22 19:58 Weight used for dosin.1 kg Estimated Creatinine Clearance: 55 Goal Trough: 15-20 mcg/mL Pharmacy Plan for Drug Dosing: Pharmacy Service will continue to monitor and adjust dosing as required. Follow-Up Labs: Trough Vancomycin Labs to be done on [date and time ordered]: 10/15/22 @0800
[2022-10-14 01:21] LABS: M R Staph aureus DNA By PCR Negative (Negative)
[2022-10-14 01:22] LABS: Probe Check PASS; Specimen Processing Control PASS
[2022-10-14] MEDS: proCHLORPERazine 10 MG/2 ML Vial 5 MG IV ×3 (03:54→17:57)
[2022-10-14 03:59] LABS: Absolute Lymphocyte Count 0.68 X10^3/uL (0.83-4.51); Absolute Neutrophil Count 14.4 X10^3/uL (2.0-7.7); Basophil# 0.03 X10^3/uL; Basophil% 0.2 % (0-1); Eosinophil# 0.14 X10^3/uL; Eosinophils% 0.8 % (0-5); Hematocrit 40.9 % (40-54); Hemoglobin 13.9 g/dL (13.0-16.5); Lymphocyte # 0.68 X10^3/ul (0.83-4.51); Lymphocyte % 3.8 % (19-41); Mean Corpuscular Hgb 31.4 pg (27.0-32.0); Mean Corpuscular Volume 92.5 fL (80-94); Mean Platelet Vol. 10.8 fl (6.2-12.0); Monocyte# 2.32 X10^3/uL; Monocyte% 13.1 % (0-10); NRBC Flagged by Analyzer 0 % (0-5); Neutrophil # 14.36 X10^3/uL (2.7-7.7); Neutrophil % 81.2 % (47-70); POSITIVE DIFFERENTIAL YES; Platelet Count 104 K/mm3 (150-450); RBC Distribution Width SD 47.7 fl (35.1-43.9); Red Blood Count 4.42 M/mm3 (4.6-6.2); White Blood Count 17.7 K/mm3 (4.4-11.0)
[2022-10-14 04:11] LABS: Differential Indicated SCAN CRITERIA MET
[2022-10-14 04:26] LABS: Differential Comment SCANNED
[2022-10-14 04:27] LABS: ALB/GLOB Ratio 0.8 RATIO (0.9-2.4); AST(SGOT) 36 U/L (15-37); Alanine Aminotransfer ALT/SGPT 64 U/L (16-61); Albumin, Serum 3.1 g/dL (3.2-5.0); Alkaline Phosphatase 67 U/L (45-117); Anion Gap 8 (5-15); BUN 40 mg/dL (7-18); BUN/Creat Ratio 18.6 RATIO (10-20); Calcium,Total 8.4 mg/dL (8.5-10.1); Chloride 88 mmol/L (98-107); Creatinine, Serum 2.15 mg/dL (0.70-1.30); EST Glomerular Filtration Rate 34 mL/min (>60); Est Glom Filt Rate - Afr Amer 41 mL/min (>60); Estimated Creatinine Clearance 43.36 ml/min; Globulin 3.7 g/dL (2.2-4.2); Glucose 128 mg/dL (74-106); Potassium 4.3 mmol/L (3.5-5.1); Protein, Total 6.8 g/dL (6.4-8.2); Sodium Level 123 mmol/L (136-145)
--- NOTE | 2022-10-14 08:29 | EX.PCM.CON.G ---
HPI Consult Data Date of Consult: 10/14/22 Attending Care Provider: GI bleed HPI Narrative Reason for Consultation: GI bleed HPI Narrative: NEISHA ORTIZ, is a 56 M who presents to the emergency department with altered status. He has a past medical history of hypertrophic cardiomyopathy status post myectomy in the past. He also has a history of persistent atrial fibrillation with congestive heart failure status post 2 ablations and on Eliquis twice a day. He had ablation for A-fib at the [facility] on 10/11/2022 presented to emergency department via squad for altered mental status that started on the same day of presentation. At the night of patient's ablation on 10/11/2022 he weighed himself and reports a weight of 285 pounds.? The following morning about 3 AM he weighed himself and reported a weight of 296 pounds.? Subsequently he took his Lasix. Also patient began to have multiple episodes of vomiting a day after his ablation that is on 10/12/2022.? Reportedly his vomitus was only saliva.? Also he had constipation.? He came to the emergency department on the same day (10/12/2022) where a CAT scan showed a kidney stone that patient was passing and also? a high fecal load.? Patient was discharged home and was advised to take stool softeners.? However his brother who is a nurse found the patient was confused and was not answering questions appropriately.? Subsequently patient's brother called the ambulance and patient was brought to the emergency department.? Reportedly patient was diaphoretic and his forehead was hot. At the emergency department patient was found to have coffee-ground emesis and an NG tube was placed. Chest x-ray in the ED had showed multifocal pneumonia with a possible concurrent congestive heart failure. I was consulted for upper GI bleed. At this time he does have a NG tube in place. [facility] Medical History Atrial fibrillation Atrial fibrillation CHF (congestive heart failure) Hypertrophic obstructive cardiomyopathy Pacemaker Home Medications apixaban 5 mg tablet 5 mg PO BID AFIB 05/29/19 [History Last Taken Unknown] albuterol sulfate 90 mcg/actuation aerosol inhaler 1 - 2 puff inhalation Q4H PRN PRN Wheezing ##1 06/28/20 [Rx Last Taken Unknown] lorazepam 0.5 mg tablet (Ativan) 0.5 mg PO DAILY PRN anxiety #7 tabs 10/02/22 [Rx Last Taken Unknown] hydrocodone-acetaminophen 5-325mg 5mg-325mg 1 tab PO Q4H PRN PRN Pain 2 days #10 TABLETS 10/12/22 [Rx Last Taken Unknown] furosemide 40 mg tablet (Lasix) 40 mg PO DAILY WATER PILL 10/13/22 [History Last Taken Unknown] lansoprazole 30 mg capsule,delayed release (Prevacid) 30 mg PO DAILY GERD 10/13/22 [History Last Taken Unknown] sertraline 50 mg tablet 50 mg PO DAILY ANXIETY 10/13/22 [History Last Taken Unknown] Allergy/AdvReac Type Severity Reaction Status Date / Time cat dander Allergy Other Verified 09/17/22 08:42 Family History Other Cancer Diabetes Hypertension Kidney disease Surgical History History of open heart surgery History of repair of hip fracture Social History Smoking Status: Never smoker ROS ROS Narrative Pertinent positives and pertinent negatives as noted in HPI. All other systems were reviewed and are negative Physical Exam Narrative Physical exam: General: Middle aged density on, diaphoretic, NG tube in nostrils Head: Normocephalic, atraumatic, no tenderness Eyes: Vision is grossly intact. EOMI ENT, no trauma, moist mucous membranes, no rhinorrhea Neck: Nontender, No thyromegaly. CVS: Regular rate and rhythm. S1-S2 present. No murmur, gallop or rub. Respiratory : Tachypnea; Rales; chest wall nontender Abdomen: Soft, nontender, nondistended, normal bowel sounds, no masses : Deferred Extremities: Nontender full range of motion, no trauma Skin: Normal color, no trauma, abrasions Neuro: Alert, oriented x3. Minimal hesitation in answering questions. Cranial nerves II through XII grossly intact. Psychiatry: Normal mood. Normal affect. Not depressed. Not anxious. Lab / Micro Data Result Diagrams: 10/14/22 03:45 10/14/22 03:45 Labs: Laboratory Results - last 24 hr 10/13/22 19:58: WBC 16.7 H, RBC 4.44 L, Hgb 13.9, Hct 41.0, MCV 92.3, MCH 31.3, MCHC 33.9, RDW Std Deviation 46.9 H, RDW Coeff of Cassia 13.8, Plt Count 135 L, MPV 11.2, Immature Gran % (Auto) 1.400 H, Neut % (Auto) 85.6 H, Lymph % (Auto) 3.2 L, [place] % (Auto) 9.6, Eos % (Auto) 0.0, Baso % (Auto) 0.2, Absolute Neuts (auto) 14.3 H, Absolute Lymphs (auto) 0.53 L, Nucleated RBC % 0, Differential Comment SCANNED, Diff Path Review November10/13/22 19:58: PT 22.4 H, INR 2.0, APTT 42.9 H 10/13/22 19:58: Sodium 121 L, Potassium 4.0, Chloride 88 L, Carbon Dioxide 24.0, Anion Gap 9, BUN 38 H, Creatinine 2.17 H, Estim Creat Clear Calc 42.96, Est GFR (MDRD) Af Amer 41 L, Est GFR (MDRD) Non-Af 34 L, BUN/Creatinine Ratio 17.5, Glucose 133 H, Calcium 8.7, Total Bilirubin 1.60 H, AST 48 H, ALT 70 H, Alkaline Phosphatase 77, Total Protein 7.0, Albumin 3.2, Globulin 3.8, Albumin/Globulin Ratio 0.8 L 10/13/22 19:58: Lactic Acid 1.7 10/13/22 20:00: Urine Color Yellow, Urine Clarity Clear, Urine pH 5.0, Ur Specific [place] 1.015, Urine Protein 100 H, Urine Glucose (UA) Normal, Urine Ketones Negative, Urine Occult Blood 150 H, Urine Nitrite Negative, Urine Bilirubin Negative, Urine Urobilinogen Normal, Ur Leukocyte Esterase 500 H, Urine RBC 0-5 SEEN, Urine WBC 10-25 SEEN, Ur Squamous Epith Cells 0 SEEN, Urine Bacteria RARE, Urine Mucus 0 SEEN 10/13/22 23:55: Hgb 13.0, Hct 38.1 L 10/13/22 23:55: Sodium 123 L 10/13/22 23:55: MRSA (PCR) Negative 10/14/22 03:45: WBC 17.7 H, RBC 4.42 L, Hgb 13.9, Hct 40.9, MCV 92.5, MCH 31.4, MCHC 34.0, RDW Std Deviation 47.7 H, RDW Coeff of Cassia 14.0, Plt Count 104 L, MPV 10.8, Immature Gran % (Auto) 0.900, Neut % (Auto) 81.2 H, Lymph % (Auto) 3.8 L, [place] % (Auto) 13.1 H, Eos % (Auto) 0.8, Baso % (Auto) 0.2, Absolute Neuts (auto) 14.4 H, Absolute Lymphs (auto) 0.68 L, Nucleated RBC % 0, Differential Comment SCANNED, Diff Path Review November10/14/22 03:45: Sodium 123 L, Potassium 4.3, Chloride 88 L, Carbon Dioxide 27.0, Anion Gap 8, BUN 40 H, Creatinine 2.15 H, Estim Creat Clear Calc 43.36, Est GFR (MDRD) Af Amer 41 L, Est GFR (MDRD) Non-Af 34 L, BUN/Creatinine Ratio 18.6, Glucose 128 H, Calcium 8.4 L, Total Bilirubin 1.20 H, AST 36, ALT 64 H, Alkaline Phosphatase 67, Total Protein 6.8, Albumin 3.1 L, Globulin 3.7, Albumin/Globulin Ratio 0.8 L Micro: Microbiology 10/13/22 19:58 Blood Culture (Wb) - Anticubital Left Blood Culture - Preliminary 10/13/22 19:57 Blood Culture (Wb) - Arm Right Blood Culture - Preliminary 10/14/22 02:15 Nasal Secretion SARS-CoV-2 & FLU Antigen (Rapid) - Final 10/13/22 23:55 Urine, Clean Catch Legionella Antigen - Final 10/13/22 23:55 Urine, Clean Catch Streptococcus pneumoniae Antigen (M - Final Radiology Impression Chest X-Ray 10/13/22 20:20 IMPRESSION: Multifocal pneumonia superimposed on CHF. Electronically Signed: Jj Hutchinson MD at 20:48 EDT , KUB X-Ray 10/13/22 20:20 IMPRESSION: NG tube terminates over the gastric body with sidehole below the diaphragm. Electronically Signed: Jj Hutchinson MD at 20:49 EDT , Assessment & Plan Assessment/Plan (1) Severe sepsis with acute organ dysfunction: (2) History of atrial fibrillation: (3) Acute hyponatremia: (4) Bilateral pneumonia: (5) Infectious encephalopathy: (6) DENNIS (acute kidney injury): (7) Acute upper GI bleed: PLAN: Plan Sepsis likely secondary to aspiration pneumonia. Patient is on broad-spectrum antibiotics. He is to have a repeat chest x-ray today. The good thing is he is not on supplemental oxygen at this time. Test for COVID, Legionella, influenza are all pending. Acute GI bleed Admit to monitored bed on IV fluids H&H every 6 hours Hold home Eliquis. No anticoagulants for DVT prophylaxis Protonix plan is for upper endoscopy when medically stable. Charges/Coding Visit Charges Inpatient E&M: 14486 Init Hosp L3
--- NOTE | 2022-10-14 08:35 | CON.PCM.CC_ITS ---
Assessment & Plan Assessment/Plan (1) Severe sepsis with acute organ dysfunction: (2) Acute hyponatremia: (3) Chronic anticoagulation: (4) Acute upper GI bleed: PLAN: Plan RECOMMENDATIONS: 1. No need for transfusions at this time 2. Continue empiric antibiotics. Bolus IV fluids if necessary 3. Will likely need endoscopy at some point 4. Flush NG if patient develops ongoing coffee-ground 5. Monitor in intensive care unit over the next 24 hours IMPRESSIONS: 1. Sepsis of unclear etiology Patient with gram-negative's in the blood. Patient had a normal lactic acid, but creatinine was significantly elevated from baseline of 1.2-2.17. Patient may have a urinary or colonic source for gram-negative's. Patient is at risk for decompensation over the next 24 to 48 hours. Given recent hospitalization it is reasonable to use vancomycin and Zosyn. Cannot exclude an element of aspiration pneumonia, but patient is currently saturating well on room air. 2. Acute GI bleed Unclear etiology. Patient does have multiple episodes of retching, so a Irina-Mccurdy tear would be a consideration. Currently, patient's hemoglobin is at 13.9 and does not require any transfusions. We will likely hold off on any endoscopies until patient is more hemodynamically stable. Patient is not re porting a significant liver history to suggest variceal bleeding. Patient would be at risk for an ulcer. Of concern, patient may have a colonic obstruction leading to repeated emesis. Patient will likely require a colonoscopy, but this may be able to be done as an outpatient. Will defer to GI on whether patient requires a CT with contrast for an evaluation. 3. Metabolic encephalopathy/hypovolemic hyponatremia/hypochloremia Patient is much improved following antibiotics and resuscitative measures. Clinical suspicion for ongoing losses secondary to repeated emesis leading to hyponatremia and hypochloremia. Patient is receiving IV fluids at this time. We will continue to monitor. 4. Acute kidney injury Prerenal etiology is considered. Baseline creatinine appears to be 1.2 and patient presented with a creatinine of 2.17. Patient is receiving IV hydration. Patient was on Lasix at home which will complicate renal dysfunc tion. No indication for renal replacement therapy at this time. 5. History of A-fib/HOCM/obesity/elevated glucose Complicates care, management, recovery and prognosis. Patient currently paced. Patient will be at risk for development of flash pulmonary edema given HOCM. Continue to monitor respiratory status. Patient may benefit from an evaluation for diabetes mellitus as an outpatient HPI Consult Data Date of Consult: 10/14/22 HPI Narrative Reason for Consultation: Sepsis HPI Narrative: NEISHA ORTIZ is a 56 M, with past medical history listed below, who presents to [facility] on 10/13/2022 secondary to confusion, fever and coffee-ground emesis. Patient recently had had an ablation at [facility] and had been placed on apixaban. Patient reportedly had had complained of nausea and vomiting for weeks previously. Patient's brother brought him to the ER because she was not acting himself. Patient is known to have an extensive cardiac history, but no obstructive lung disease. In the ER, patient was febrile to 101.5 ?F, but saturating well on room air. Patient was noted to have a blood pressure as low as 95/70. Patient was noted to have coffee-ground emesis on his lower lip and manzo and was tachypneic at 31 breaths/min. Laboratory work-up showed a white blood cell count of 16.7, hemoglobin of 13.9 and platelets of 135. Initial INR was 2. Chemistries were significant for a sodium of 121, chloride of 88 and creatinine of 2.17. Total bili was elevated at 1.6. Urinalysis did show some white blood cells with leukocyte Estrace and occult blood. Chest x-ray showed bilateral infiltrates. Patient was given healthcare associated antibiotics with Zosyn and vancomycin and NG was placed given recurrent retching. Since being in the intensive care unit, patient has remained on Protonix. Patient has had an element of urinary retention per nursing with polyuria. Patient's mentation is reportedly improving and he is alert and oriented this morning. Patient denies any history of respiratory complaints. Patient states that in retrospect he has not been normal in weeks. Patient was hoping that the ablation was going to make him feel better. Patient is unaware of any previous GI bleeds. Patient denies any smoking or excessive alcohol. No IV drugs are noted. Patient states he is never had a colonoscopy or Cologuard. Patient states he has had some issues with constipation in the past. Patient reported his stools as dark green for the last 1 to 2 weeks. Review of systems otherwise negative from a constitutional, HEENT, respiratory, cardiovascular, GI, genitourinary, musculoskeletal, skin, neurologic, psychia tric and hematologic system unless stated above. [facility], [facility] Medical History Atrial fibrillation Atrial fibrillation CHF (congestive heart failure) Hypertrophic obstructive cardiomyopathy Pacemaker Home Medications apixaban 5 mg tablet 5 mg PO BID AFIB 05/29/19 [History Last Taken Unknown] albuterol sulfate 90 mcg/actuation aerosol inhaler 1 - 2 puff inhalation Q4H PRN PRN Wheezing ##1 06/28/20 [Rx Last Taken Unknown] lorazepam 0.5 mg tablet (Ativan) 0.5 mg PO DAILY PRN anxiety #7 tabs 10/02/22 [Rx Last Taken Unknown] hydrocodone-acetaminophen 5-325mg 5mg-325mg 1 tab PO Q4H PRN PRN Pain 2 days #10 TABLETS 10/12/22 [Rx Last Taken Unknown] furosemide 40 mg tablet (Lasix) 40 mg PO DAILY WATER PILL 10/13/22 [History Last Taken Unknown] lansoprazole 30 mg capsule,delayed release (Prevacid) 30 mg PO DAILY GERD 10/13/22 [History Last Taken Unknown] sertraline 50 mg tablet 50 mg PO DAILY ANXIETY 10/13/22 [History Last Taken Unknown] Allergy/AdvReac Type Severity Reaction Status Date / Time cat dander Allergy Other Verified 09/17/22 08:42 Family History Other Cancer Diabetes Hypertension Kidney disease Surgical History History of open heart surgery History of repair of hip fracture Social History Smoking Status: Never smoker ROS ROS Narrative See HPI Physical Exam Const alert, oriented x3 and no apparent distress Constitutional Narrative: Obese. Appears older than stated age. General Appearance: cooperative and well developed HEENT normocephalic, head/scalp atraumatic and moist oral mucous membranes Eyes PERRL, EOMs intact bilaterally and conjunctivae normal Eyes Narrative: Slight scleral injection Neck full ROM and no lymphadenopathy Chest inspection of chest normal Resp normal respiratory effort and no use of accessory muscles Effort and Inspection: able to speak in complete sentences Auscultation: rales; Negative for rhonchi or wheezes Percussion: Negative for dullness Cardio regular rate, regular rhythm, S1 normal heart sound, S2 normal heart sound, no murmurs, no rub and no gallops GI normal to inspection, nondistended, normoactive bowel sounds no CVA tenderness Extremity no clubbing, cyanosis or edema Skin no rashes or lesions noted Neuro oriented x3, CN's II-XII intact bilaterally, moves all extremities and no focal motor deficits Psych cooperative and affect normal Medical Records Data Attestation: I reviewed the patient's medical records Lab / Micro Data Attestation: I reviewed the patient's lab results. Result Diagrams: 10/14/22 03:45 10/14/22 03:45 Labs: Laboratory Results - last 24 hr 10/13/22 19:58: WBC 16.7 H, RBC 4.44 L, Hgb 13.9, Hct 41.0, MCV 92.3, MCH 31.3, MCHC 33.9, RDW Std Deviation 46.9 H, RDW Coeff of Cassia 13.8, Plt Count 135 L, MPV 11.2, Immature Gran % (Auto) 1.400 H, Neut % (Auto) 85.6 H, Lymph % (Auto) 3.2 L , Nelson % (Auto) 9.6, Eos % (Auto) 0.0, Baso % (Auto) 0.2, Absolute Neuts (auto) 14.3 H, Absolute Lymphs (auto) 0.53 L, Nucleated RBC % 0, Differential Comment SCANNED, Diff Path Review November10/13/22 19:58: PT 22.4 H, INR 2.0, APTT 42.9 H 10/13/22 19:58: Sodium 121 L, Potassium 4.0, Chloride 88 L, Carbon Dioxide 24.0, Anion Gap 9, BUN 38 H, Creatinine 2.17 H, Estim Creat Clear Calc 42.96, Est GFR (MDRD) Af Amer 41 L, Est GFR (MDRD) Non-Af 34 L, BUN/Creatinine Ratio 17.5, Glucose 133 H, Calcium 8.7, Total Bilirubin 1.60 H, AST 48 H, ALT 70 H, Alkaline Phosphatase 77, Total Protein 7.0, Albumin 3.2, Globulin 3.8, Albumin/Globulin Ratio 0.8 L 04/12/23 19:58: Lactic Acid 1.7 10/13/22 20:00: Urine Color Yellow, Urine Clarity Clear, Urine pH 5.0, Ur Specific [place] 1.015, Urine Protein 100 H, Urine Glucose (UA) Normal, Urine Ketones Negative, Urine Occult Blood 150 H, Urine Nitrite Negative, Urine Bilirubin Negative, Urine Urobilinogen Normal, Ur Leukocyte Esterase 500 H, Urine RBC 0-5 SEEN, Urine WBC 10-25 SEEN, Ur Squamous Epith Cells 0 SEEN, Urine Bacteria RARE, Urine Mucus 0 SEEN 10/13/22 23:55: Hgb 13.0, Hct 38.1 L 10/13/22 23:55: Sodium 123 L 10/13/22 23:55: MRSA (PCR) Negative 10/14/22 03:45: WBC 17.7 H, RBC 4.42 L, Hgb 13.9, Hct 40.9, MCV 92.5, MCH 31.4, MCHC 34.0, RDW Std Deviation 47.7 H, RDW Coeff of Cassia 14.0, Plt Count 104 L, MPV 10.8, Immature Gran % (Auto) 0.900, Neut % (Auto) 81.2 H, Lymph % (Auto) 3.8 L, Nelson % (Auto) 13.1 H, Eos % (Auto) 0.8, Baso % (Auto) 0.2, Absolute Neuts (auto) 14.4 H, Absolute Lymphs (auto) 0.68 L, Nucleated RBC % 0, Differential Comment SCANNED, Diff Path Review November10/14/22 03:45: Sodium 123 L, Potassium 4.3, Chloride 88 L, Carbon Dioxide 27.0, Anion Gap 8, BUN 40 H, Creatinine 2.15 H, Estim Creat Clear Calc 43.36, Est GFR (MDRD) Af Amer 41 L, Est GFR (MDRD) Non-Af 34 L, BUN/Creatinine Ratio 18.6, Glucose 128 H, Calcium 8.4 L, Total Bilirubin 1.20 H, AST 36, ALT 64 H, Alkaline Phosphatase 67, Total Protein 6.8, Albumin 3.1 L, Globulin 3.7, Albumin/Globulin Ratio 0.8 L Micro: Microbiology 10/13/22 19:58 Blood Culture (Wb) - Anticubital Left Blood Culture - Preliminary 10/13/22 19:57 Blood Culture (Wb) - Arm Right Blood Culture - Preliminary 10/14/22 02:15 Nasal Secretion SARS-CoV-2 & FLU Antigen (Rapid) - Final 10/13/22 23:55 Urine, Clean Catch Legionella Antigen - Final 10/13/22 23:55 Urine, Clean Catch Streptococcus pneumoniae Antigen (M - Final Radiology Impression Chest X-Ray 10/13/22 20:20 IMPRESSION: Multifocal pneumonia superimposed on CHF. Electronically Signed: Jj Hutchinson MD at 20:48 EDT , KUB X-Ray 10/13/22 20:20 IMPRESSION: NG tube terminates over the gastric body with sidehole below the diaphragm. Electronically Signed: Jj Hutchinson MD at 20:49 EDT , Charges/Coding Visit Charges Inpatient E&M: 52700 Init Hosp L3
--- NOTE | 2022-10-14 11:29 | PN.HOSP_ITS ---
Reason for Visit Reason for Visit: Diagnoses Sepsis, unspecified organism (10/13/22) Unspecified infectious disease (10/13/22) Hypo-osmolality and hyponatremia (10/13/22) Other encephalopathy (10/13/22) Pneumonia, unspecified organism (10/13/22) Gastrointestinal hemorrhage, unspecified (10/13/22) Acute kidney failure, unspecified (10/13/22) Severe sepsis without septic shock (10/13/22) Personal history of other diseases of the circulatory system (10/13/22) Subjective Subjective Patient was seen and examined today in ICU, he continues to to have an NG tube in place, he was seen by gastroenterology and critical care. Patient has no complaints of any shortness of breath or nausea at this time. Objective Data Objective Data Vital Signs: Vital Signs Temp Pulse Resp BP Pulse Ox O2 Del Method 97.4 F L 78 25 H 124/81 H 97 Room Air 10/14/22 08:00 10/14/22 08:00 10/14/22 08:00 10/14/22 08:00 10/14/22 08:00 10/14/22 08:00 Oxygen Delivery Method Room Air Weight: 135.1 kg Body Mass Index (BMI) 39.2 Intake & Output: Intake and Output for Last 24 Hours 10/12/22 10/13/22 10/14/22 23:59 23:59 23:59 Intake Total 675 / 675 145.67 / 145.67 Output Total 450 / 450 Balance 675 / 625 -304.33 / -304.33 Lab / Micro Data Result Diagrams: 10/14/22 03:45 10/14/22 03:45 Labs: Laboratory Results - last 24 hr 10/13/22 19:58: WBC 16.7 H, RBC 4.44 L, Hgb 13.9, Hct 41.0, MCV 92.3, MCH 31.3, MCHC 33.9, RDW Std Deviation 46.9 H, RDW Coeff of Cassia 13.8, Plt Count 135 L, MPV 11.2, Immature Gran % (Auto) 1.400 H, Neut % (Auto) 85.6 H, Lymph % (Auto) 3.2 L , [place] % (Auto) 9.6, Eos % (Auto) 0.0, Baso % (Auto) 0.2, Absolute Neuts (auto) 14.3 H, Absolute Lymphs (auto) 0.53 L, Nucleated RBC % 0, Differential Comment SCANNED, Diff Path Review November10/13/22 19:58: PT 22.4 H, INR 2.0, APTT 42.9 H 10/13/22 19:58: Sodium 121 L, Potassium 4.0, Chloride 88 L, Carbon Dioxide 24.0, Anion Gap 9, BUN 38 H, Creatinine 2.17 H, Estim Creat Clear Calc 42.96, Est GFR (MDRD) Af Amer 41 L, Est GFR (MDRD) Non-Af 34 L, BUN/Creatinine Ratio 17.5, Glucose 133 H, Calcium 8.7, Total Bilirubin 1.60 H, AST 48 H, ALT 70 H, Alkaline Phosphatase 77, Total Protein 7.0, Albumin 3.2, Globulin 3.8, Albumin/Globulin Ratio 0.8 L 10/13/22 19:58: Lactic Acid 1.7 10/13/22 20:00: Urine Color Yellow, Urine Clarity Clear, Urine pH 5.0, Ur Specific [place] 1.015, Urine Protein 100 H, Urine Glucose (UA) Normal, Urine Ketones Negative, Urine Occult Blood 150 H, Urine Nitrite Negative, Urine Bilirubin Negative, Urine Urobilinogen Normal, Ur Leukocyte Esterase 500 H, Urine RBC 0-5 SEEN, Urine WBC 10-25 SEEN, Ur Squamous Epith Cells 0 SEEN, Urine Bacteria RARE, Urine Mucus 0 SEEN 10/13/22 23:55: Hgb 13.0, Hct 38.1 L 10/13/22 23:55: Sodium 123 L 10/13/22 23:55: MRSA (PCR) Negative 10/14/22 03:45: WBC 17.7 H, RBC 4.42 L, Hgb 13.9, Hct 40.9, MCV 92.5, MCH 31.4, MCHC 34.0, RDW Std Deviation 47.7 H, RDW Coeff of Cassia 14.0, Plt Count 104 L, MPV 10.8, Immature Gran % (Auto) 0.900, Neut % (Auto) 81.2 H, Lymph % (Auto) 3.8 L, [place] % (Auto) 13.1 H, Eos % (Auto) 0.8, Baso % (Auto) 0.2, Absolute Neuts (auto) 14.4 H, Absolute Lymphs (auto) 0.68 L, Nucleated RBC % 0, Differential Comment SCANNED, Diff Path Review November foll 10/14/22 03:45: Sodium 123 L, Potassium 4.3, Chloride 88 L, Carbon Dioxide 27.0, Anion Gap 8, BUN 40 H, Creatinine 2.15 H, Estim Creat Clear Calc 43.36, Est GFR (MDRD) Af Amer 41 L, Est GFR (MDRD) Non-Af 34 L, BUN/Creatinine Ratio 18.6, Glucose 128 H, Calcium 8.4 L, Total Bilirubin 1.20 H, AST 36, ALT 64 H, Alkaline Phosphatase 67, Total Protein 6.8, Albumin 3.1 L, Globulin 3.7, Albumin/Globulin Ratio 0.8 L Micro: Microbiology 10/13/22 20:00 Urine, Clean Catch 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 Electronically Signed: Jj Hutchinson MD at 20:48 EDT , KUB X-Ray 10/13/22 20:20 IMPRESSION: NG tube terminates over the gastric body with sidehole below the diaphragm. Electronically Signed: Jj Hutchinson MD at 20:49 EDT , Physical Exam Const alert, oriented x3, no apparent distress and healthy appearing General Appearance: cooperative, well kempt and well developed Orientation / Consciousness: awake, oriented to person, oriented to place and oriented to time HEENT normocephalic, head/scalp atraumatic and moist oral mucous membranes Eyes PERRL, EOMs intact bilaterally and conjunctivae normal Neck supple, no JVD, thyroid normal and no carotid bruits General: trachea midline Resp normal respiratory effort, no retractions, no use of accessory muscles and clear to auscultation bilaterally Auscultation: Negative for rales, rhonchi or wheezes Cardio regular rate, regular rhythm, S1 normal heart sound, S2 normal heart sound, no murmurs, no rub and no gallops GI normal to inspection, nondistended, normoactive bowel sounds, soft to palpation, non-tender and non-distended GI Narrative: NG tube is in place Extremity no clubbing, cyanosis or edema Skin no rashes or lesions noted General Skin Exam: no breakdown Neuro oriented x3, CN's II-XII intact bilaterally, moves all extremities, no focal motor deficits and no sensory deficits noted Sensorium / Orientation: awake, alert, oriented to person and oriented to place Speech: speech normal Psych affect normal Assessment & Plan Assessment/Plan (1) Sepsis: PLAN: Plan 1. Sepsis-etiology unclear at this time, patient remains on vancomycin and Zosyn at this time #2 metabolic encephalopathy-resolved at this time, patient is alert and appropriate during this examiner's visit #3 upper GI bleed-exact source unknown at this time, gastroenterology is seeing the patient, he will need an EGD, NG tube remains in place due to nausea and vomiting. Patient is on a PPI. #4 use of chronic anticoagulant-this is being held at this time due to upper GI bleed #5 chronic atrial fibrillation-patient currently has a pacemaker and his rhythm is paced at this time, patient underwent an ablation on 10/11/2022 for A-fib. #6 hypertrophic obstructive cardiomyopathy-patient had treatment for this in the past with myectomy Total clinical time spent by myself addressing the patient's medical problems, reviewing all the data, and collaborating with patient's care team: 36 minutes Charges/Coding Visit Charges Inpatient E&M: 30272 Subs Hosp L2
[2022-10-14 13:00] LABS: Pathologist Review Reviewed
[2022-10-14 13:00] LABS: Pathologist Review Reviewed
[2022-10-14 15:11] LABS: Sodium Level 124 mmol/L (136-145)
--- NOTE | 2022-10-14 15:24 | CASEMGMT ---
Social Work Pt states he has completed a living will and health care POA naming his brother Corie Ballard. SW informed pt that documents are not on file at [facility] and requested they be brought in for scanning into medical record when pt is able. MARQUEZ Henry
[2022-10-14 16:36] LABS: Hematocrit 37.4 % (40-54); Hemoglobin 12.8 g/dL (13.0-16.5); POSITIVE COUNT YES
--- NOTE | 2022-10-14 17:15 | CASEMGMT ---
RN?CM?COUNTER TOP MAKER?CM?to room to meet with patient for initial transition planning/care coordination?assessment.?RN?CM?introduced self and role at [facility].? Pt voices understanding and consents to?assessment?at this time.? Pt sitting up in chair in room in no distress at this time.? Pt is A/O at this time and answers all questions appropriately.?? Care providers, pharmacy, and demographics verified/updated at this time. PCP: Dr Malave Specialists: Dr Arita-audio video tech @ [facility] Preferred Pharmacy:[facility] Insurance: [email or web address] Prescription Benefit:?yes Living Will/HPOA: Pt states he has LW and HCPOA, who is his brother, Corie. LNOK: Brother/POACorie Living Arrangements: Lives alone in 2-story home w/no steps to enter. Bedroom is upstairs and pt states he does okay w/the stairs. Indep w/ADL's and IADL's. Transportation:?Pt states drives self and states no transportation concerns at this time.?Brother will take him home @ d/c. DME: ? Denies using any DME and denies needs. HHC/SNF: No hx of either. Denies need for HHC and no needs identified. Pt wishes to return home and states has no concerns with going home at time of discharge.? CM?to follow for any discharge planning/needs.? Pt voices no concerns/needs at this time.? Advised pt to ask for?CM?if any questions/concerns/needs arise.? Voices understanding. PLAN:??Home Dany HAWKN?RN?CM
[2022-10-14] MEDS: Bisacodyl 5 MG Tablet 20 MG PO (17:31)
[2022-10-14] MEDS: Polyethylene Glycol 3350 BOWEL PREP PO (17:34)
[2022-10-14] MEDS: Metoclopramide 10 MG/2 ML Vial 5 MG IV (18:41)
[2022-10-14 22:54] LABS: Hematocrit 39.3 % (40-54); Hemoglobin 13.6 g/dL (13.0-16.5)
[2022-10-14 23:04] LABS: Sodium Level 126 mmol/L (136-145)
[2022-10-15] VITALS (25 sets, daily range): BP systolic 92–133; BP diastolic 54–104; PULSE 24–103; RESP 16–27; TEMP 35.9–36.9; O2SAT 92–100
[2022-10-15] MEDS: Metoclopramide 10 MG/2 ML Vial 5 MG IV ×3 (01:06→20:13)
[2022-10-15 04:36] LABS: Absolute Neutrophil Count 10.7 X10^3/uL (2.0-7.7); Basophil# 0.02 X10^3/uL; Basophil% 0.1 % (0-1); Eosinophil# 0.01 X10^3/uL; Eosinophils% 0.1 % (0-5); Hemoglobin 12.9 g/dL (13.0-16.5); Lymphocyte % 3.6 % (19-41); Mean Corp Hgb Conc 33.9 g/dL (32-36); Mean Corpuscular Hgb 30.8 pg (27.0-32.0); Mean Corpuscular Volume 90.7 fL (80-94); Mean Platelet Vol. 11.7 fl (6.2-12.0); Monocyte# 2.66 X10^3/uL; Monocyte% 19.1 % (0-10); NRBC Flagged by Analyzer 0 % (0-5); Neutrophil % 76.6 % (47-70); POSITIVE DIFFERENTIAL YES; Platelet Count 102 K/mm3 (150-450); RBC Distribution Width CV 13.8 % (11.6-14.6); RBC Distribution Width SD 45.7 fl (35.1-43.9); Red Blood Count 4.19 M/mm3 (4.6-6.2)
[2022-10-15 04:41] LABS: Differential Indicated SCAN CRITERIA MET
[2022-10-15 04:47] LABS: Anion Gap 8 (5-15); BUN 38 mg/dL (7-18); BUN/Creat Ratio 22.4 RATIO (10-20); Calcium,Total 8.3 mg/dL (8.5-10.1); Chloride 95 mmol/L (98-107); EST Glomerular Filtration Rate 44 mL/min (>60); Est Glom Filt Rate - Afr Amer 54 mL/min (>60); Estimated Creatinine Clearance 54.83 ml/min; Glucose 125 mg/dL (74-106); Potassium 3.7 mmol/L (3.5-5.1); Sodium Level 126 mmol/L (136-145)
[2022-10-15 05:00] LABS: Differential Comment SCANNED
--- NOTE | 2022-10-15 07:11 | PN.CC_ITS ---
Assessment & Plan Assessment/Plan (1) Severe sepsis with acute organ dysfunction: (2) Acute hyponatremia: (3) Chronic anticoagulation: (4) Acute upper GI bleed: PLAN: Plan RECOMMENDATIONS: 1. No need for transfusions at this time 2. Continue Zosyn. Discontinue vancomycin. 3. Await results of upper and lower endoscopy 4. Potentially discontinue NG pending results of endoscopy 5. Okay to leave the intensive care unit 6. Hemodynamically stable on room air. Will sign off from a critical care perspective IMPRESSIONS: 1. Sepsis secondary to UTI Patient with gram-negatives in the blood and urine. Patient had a normal lactic acid, but creatinine was significantly elevated from baseline of 1.2- 2.17. Patient may have a urinary or colonic source for gram-negative's. Given recent hospitalization it is reasonable to use Zosyn. Vancomycin will be discontinued as no gram-positives have been noted. Cannot exclude an element of aspiration pneumonia, but patient is currently saturating well on room air. 2. Acute GI bleed Unclear etiology. Patient does have multiple episodes of retching, so a Irina-Mccurdy tear would be a consideration. Currently, patient's hemoglobin is at 13.9 and does not require any transfusions. Patient is stable for endoscopy from a medical standpoint. Patient is not reporting a significant liver history to suggest variceal bleeding. Patient would be at risk for an ulcer. Of concern, patient may have a colonic obstruction leading to repeated emesis. 3. Metabolic encephalopathy/hypovolemic hyponatremia/hypochloremia Resolved. Patient is much improved following antibiotics and resuscitative measures. Clinical suspicion for ongoing losses secondary to repeated emesis leading to hyponatremia and hypochloremia. Patient is receiving IV fluids at this time. We will continue to monitor. 4. Acute kidney injury Improving. Prerenal etiology is considered. Baseline creatinine appears to be 1.2 and patient presented with a creatinine of 2.17. Patient is receiving IV hydration. Patient was on Lasix at home which will complicate renal dysfunction. No indication for renal replacement therapy at this time. 5. History of A-fib/HOCM/obesity/elevated glucose Complicates care, management, recovery and prognosis. Patient currently paced. Patient will be at risk for development of flash pulmonary edema given HOCM. Continue to monitor respiratory status. Patient may benefit from an evaluation for diabetes mellitus as an outpatient Subjective Subjective Patient did well overnight. No acute issues were reported. No pressors or fluid boluses were required. Patient has not had any significant hematemesis or hematochezia. Patient has had polyuria and some dysuria. Patient saturating well on room air. Objective Data Objective Data Patient is to have an upper and lower endoscopy later today Vital Signs: Vital Signs Temp Pulse Resp BP Pulse Ox O2 Del Method 36.9 C 83 26 H 122/92 H 94 Room Air 10/15/22 02:00 10/15/22 06:00 10/15/22 06:00 10/15/22 06:00 10/15/22 06:00 10/15/22 06:00 Oxygen Delivery Method Room Air Weight: 135.1 kg Body Mass Index (BMI) 39.2 Intake & Output: Intake and Output for Last 24 Hours 10/13/22 10/14/22 10/15/22 23:59 23:59 23:59 Intake Total 675 / 675 2814.00 / 2814.00 208.5 / 208.5 Output Total 1800 / 1800 Balance 675 / 625 1014.00 / 1014.00 208.5 / 208.5 Lab / Micro Data Attestation: I reviewed the patient's lab results. Result Diagrams: 10/15/22 04:20 10/15/22 04:20 Labs: Laboratory Results - last 24 hr 10/13/22 19:58: Diff Path Review Reviewed 10/14/22 03:45: Diff Path Review Reviewed 10/14/22 14:30: Sodium 124 L 10/14/22 16:20: Hgb 12.8 L, Hct 37.4 L 10/14/22 22:30: Hgb 13.6, Hct 39.3 L 10/14/22 22:30: Sodium 126 L 10/15/22 04:20: WBC 14.0 H, RBC 4.19 L, Hgb 12.9 L, Hct 38.0 L, MCV 90.7, MCH 30.8, MCHC 33.9, RDW Std Deviation 45.7 H, RDW Coeff of Cassia 13.8, Plt Count 102 L, MPV 11.7, Immature Gran % (Auto) 0.500, Neut % (Auto) 76.6 H, Lymph % (Auto) 3.6 L, [place] % (Auto) 19.1 H, Eos % (Auto) 0.1, Baso % (Auto) 0.1, Absolute Neuts (auto) 10.7 H, Absolute Lymphs (auto) 0.50 L, Nucleated RBC % 0, Differential Comment SCANNED, Diff Path Review November foll 10/15/22 04:20: Sodium 126 L, Potassium 3.7, Chloride 95 L, Carbon Dioxide 23.0, Anion Gap 8, BUN 38 H, Creatinine 1.70 H, Estim Creat Clear Calc 54.83, Est GFR (MDRD) Af Amer 54 L, Est GFR (MDRD) Non-Af 44 L, BUN/Creatinine Ratio 22.4 H, Glucose 125 H, Calcium 8.3 L Micro: Microbiology 10/13/22 20:00 Urine, Clean Catch Urine 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 Appears older than stated age. General Appearance: cooperative and well developed HEENT normocephalic, head/scalp atraumatic and moist oral mucous membranes HEENT Narrative: NG still in place Eyes PERRL, EOMs intact bilaterally and conjunctivae normal Eyes Narrative: Slight scleral injection Neck full ROM and no lymphadenopathy Chest inspection of chest normal Resp normal respiratory effort and no use of accessory muscles Effort and Inspection: able to speak in complete sentences Auscultation: rales; Negative for rhonchi or wheezes Percussion: Negative for dullness Cardio regular rate, regular rhythm, S1 normal heart sound, S2 normal heart sound, no murmurs, no rub and no gallops GI normal to inspection, nondistended, normoactive bowel sounds no CVA tenderness Extremity no clubbing, cyanosis or edema Skin no rashes or lesions noted Neuro oriented x3, CN's II-XII intact bilaterally, moves all extremities and no focal motor deficits Psych cooperative and affect normal Charges/Coding Visit Charges Inpatient E&M: 71375 Subs Hosp L2
--- NOTE | 2022-10-15 11:15 | IMM_PTH ---
PATIENT: NEISHA ORTIZ LOC: MS3 U#:[id number] AGE/SX: 56/M [place] [facility] [place]: Dr. David Mcadams DO : 1965 BED: 1 DIS: 10/16/2022 SPEC #: [id number] RECD: 10/15/22 14:26 STATUS: ARMANDO REQ #: [id number] EZRA: 10/15/22 11:[address]: Ned Norris DEPT: IMMUNOHISTOCHEMISTRY RECD BY: Magaly Lange ENTERED: 10/15/22 14:26 SP TYPE: IMMUNO OTHR DR: MD Dr. Jaiden Zhang MD Dr. Mark Tereletsky, DO Dr. Victor Velasquez, MD Tissues: A - Stomach, NOS Procedures: H Pylori (initial) PHYSICIAN & INSTITUTION [place] [id number] SPECIMEN INFORMATION: Tissue Source: A ? Gastric body Clinical Info: Acute upper GI bleed Specimen Number: [id number] CPT code: 63045 METHODOLOGY: Deparaffinized sections of prefer/formalin-fixed tissue or PAP/DQ stained slides are incubated with monoclonal/polyclonal antibodies/oligonucleotide probes. Localization is made via biotin free immunoperoxidase method. Appropriate controls are performed and reacted as expected. Results on target cell population are indicated in the following table: RESULTS: ANTIBODY / CLONE RESULT Block A H Pylori (polyclonal) negative These tests were developed and their performance characteristics determined by [facility]. They may not have been cleared or approved by the U.S. Food and Drug Administration. The FDA has determined that such clearance or approval is not necessary. The above immunohistochemical/dualISH markers are ordered and reviewed by the Pathologist. INTERPRETATION: A. Gastric body, biopsy: Negative for Helicobacter pylori organisms. SJ:rosy 10/18/2022
--- NOTE | 2022-10-15 11:15 | EGD_PTH ---
PATIENT: NEISHA ORTIZ LOC: MS3 U#:[id number] AGE/SX: 56/M ROOM: [facility] [place] RE10/13/[address]: Dr. David Mcadams DO : 1965 BED: 1 DIS: 10/16/2022 SPEC #: [id number] RECD: 10/15/22 12:15 STATUS: ARMANDO PHILLIPS #: [id number] EZRA: 10/15/22 11:[address]: Ned Norris DEPT: SURGICAL PATHOLOGY RECD BY: Evangelina Solo ENTERED: 10/15/22 13:41 SP TYPE: EGD BIOPSY OT DR: MD Dr. Jaiden Zhang MD Dr. Mark Tereletsky, DO Dr. Rahsaan Friend, DO Dr. Victor Velasquez, MD Tissues: A - Gastric mucous membrane B - Cecum, NOS Procedures: Surgery Specimen Level IV Comments: @ Ordering doctor for SUIV edited from to @ by CHARLY at 10/15/22 1433 @ Submitting doctor edited from to @ by RGOOD at 10/15/22 1433 HEADER OPERATION: Colonoscopy with biopsy, EGD with biopsy ([facility] [place]) PRE-OP DIAGNOSIS: Acute upper GI bleed TISSUE SUBMITTED: A ? Gastric body biopsy, B ? Cecal biopsy MICROSCOPIC DIAGNOSIS A. Gastric body, biopsy: Mild gastritis. See microscopic description and comment. B. Cecal biopsy: A fragment of colonic mucosa, no pathologic diagnosis. SJ:rosy 10/18/2022 COMMENT A. The results of immunohistochemistry for Helicobacter pylori will be reported separately ([id number]). MICROSCOPIC DESCRIPTION Slides are reviewed. A. The specimen shows fragments of gastric mucosa with chronic inflammatory cell infiltrates in the lamina propria consisting of lymphocytes and plasma cells, consistent with mild chronic gastritis. GROSS DESCRIPTION A - Received in fixative is one container labeled with the patient's name and designated gastric body biopsy. The specimen consists of one irregular fragment of light sepulveda soft tissue that measures 0.4 x 0.3 x 0.1 cm. The specimen is totally submitted in one cassette. B - Received in fixative is one container labeled with the patient's name and designated cecal biopsy. The specimen consists of one irregular fragment of light sepulveda soft tissue that measures 0.4 x 0.3 x 0.1 cm. The specimen is totally submitted in one cassette. / SJ:rg 10/15/2022 TC:3 CPT: 82113 x2
--- NOTE | 2022-10-15 12:06 | OP.EGD_ITS ---
Patient Name: Lorenzo Ballard Procedure Date: 10/15/2022 11:25 AM Date of : 1965 Age: 56 Procedure: Upper GI endoscopy Indications: Hematemesis Providers: Ned Norris DO Medicines: Monitored Anesthesia Care Patient Profile: This is a 56 year old male. Refer to note in patient chart for documentation of history and physical. Patient has symptoms of acute vomiting. Complications: No immediate complications. Procedure: Pre-Anesthesia Assessment: - Prior to the procedure, a History and Physical was performed, and patient medications and allergies were reviewed. The risks and benefits of the procedure and the sedation options and risks were discussed with the patient. All questions were answered and informed consent was obtained. Patient identification and proposed procedure were verified by the physician. Mental Status Examination: normal. Prophylactic Antibiotics: The patient does not require prophylactic antibiotics. Prior Anticoagulants: The patient has taken no previous anticoagulant or antiplatelet agents. ASA Grade Assessment: III - A patient with severe systemic disease. After reviewing the risks and benefits, the patient was deemed in satisfactory condition to undergo the procedure. The anesthesia plan was to use monitored anesthesia care (MAC). Immediately prior to administration of medications, the patient was re-assessed for adequacy to receive sedatives. The heart rate, respiratory rate, oxygen saturations, blood pressure, adequacy of pulmonary ventilation, and response to care were monitored throughout the procedure. The physical status of the patient was re-assessed after the procedure. After obtaining informed consent, the endoscope was passed under direct vision. Throughout the procedure, the patient's blood pressure, pulse, and oxygen saturations were monitored continuously. The pediatric colonoscope was introduced through the mouth, and advanced to the second part of duodenum. The upper GI endoscopy was accomplished without difficulty. The patient tolerated the procedure well. Scope In: 11:35:59 AM Scope Out: 11:38:48 AM Total Procedure Duration Time 0 hours 2 minutes 49 seconds Findings: LA Grade A (one or more mucosal breaks less than 5 mm, not extending between tops of 2 mucosal folds) esophagitis with no bleeding was found 35 to 37 cm from the incisors. Few oozing linear gastric ulcers with pigmented material were found in the gastric body. The largest lesion was 6 mm in largest dimension. Area was successfully injected with 5 mL of a 1:10,000 solution of epinephrine for drug delivery. Estimated blood loss was minimal. Coagulation for hemostasis using heater probe was successful. Estimated blood loss was minimal. Two non-bleeding superficial gastric ulcers with no stigmata of bleeding were found in the gastric body. The largest lesion was 2 mm in largest dimension. Biopsies were taken with a cold forceps for histology. Verification of patient identification for the specimen was done. Estimated blood loss was minimal. The first portion of the duodenum was normal. Impression: - LA Grade A erosive esophagitis. - Oozing gastric ulcers with pigmented material. Injected. Treated with a heater probe. - Non-bleeding gastric ulcers with no stigmata of bleeding. Biopsied. - Normal first portion of the duodenum. Recommendation: - Return patient to [facility] for ongoing care. - Resume previous diet. - Continue present medications. Procedure Code(s): --- Professional --- 77409, 59, Esophagogastroduodenoscopy, flexible, transoral; with control of bleeding, any method 11831, 59, Esophagogastroduodenoscopy, flexible, transoral; with directed submucosal injection(s), any substance 37464, 51, Esophagogastroduodenoscopy, flexible, transoral; with biopsy, single or multiple CPT copyright 2017 [employer]. All rights reserved. The codes documented in this report are preliminary and upon remote inpatient coder review may be revised to meet current compliance requirements. Ned Norris DO 10/15/2022 12:06:09 PM This report has been signed electronically. Number of Addenda: 0 Note Initiated On: 10/15/2022 11:25 AM
--- NOTE | 2022-10-15 12:07 | OP.CCLET_ITS ---
10/15/2022 Carlos Malave [address] [place] [address] Re : Upper GI endoscopy procedure for Lorenzo Ballard Dear Dr. Malave This procedure was performed on Saturday, October 15, 2022. My impressions and recommendations are as follows: Impressions : - LA Grade A erosive esophagitis. - Oozing gastric ulcers with pigmented material. Injected. Treated with a heater probe. - Non-bleeding gastric ulcers with no stigmata of bleeding. Biopsied. - Normal first portion of the duodenum. Recommendations : - Return patient to [facility] for ongoing care. - Resume previous diet. - Continue present medications. My findings are described in the full procedure note, which is enclosed. If I can be of further assistance, please feel free to contact me at . Sincerely, Ned Norris, 10/15/2022 12:06:09 PM This report has been signed electronically.
--- NOTE | 2022-10-15 12:10 | OP.COLON_ITS ---
Patient Name: Lorenzo Ballard Procedure Date: 10/15/2022 11:39 AM Date of : 1965 Age: 56 Procedure: Colonoscopy Indications: Melena Providers: Ned Norris DO Medicines: Monitored Anesthesia Care Patient Profile: This is a 56 year old male. Refer to note in patient chart for documentation of history and physical. Patient has symptoms of acute vomiting. Last Colonoscopy: none. The patient's first colonoscopy is today. Complications: No immediate complications. Procedure: Pre-Anesthesia Assessment: - Prior to the procedure, a History and Physical was performed, and patient medications and allergies were reviewed. The risks and benefits of the procedure and the sedation options and risks were discussed with the patient. All questions were answered and informed consent was obtained. Patient identification and proposed procedure were verified by the physician. Mental Status Examination: normal. Prophylactic Antibiotics: The patient does not require prophylactic antibiotics. Prior Anticoagulants: The patient has taken no previous anticoagulant or antiplatelet agents. ASA Grade Assessment: III - A patient with severe systemic disease. After reviewing the risks and benefits, the patient was deemed in satisfactory condition to undergo the procedure. The anesthesia plan was to use monitored anesthesia care (MAC). Immediately prior to administration of medications, the patient was re-assessed for adequacy to receive sedatives. The heart rate, respiratory rate, oxygen saturations, blood pressure, adequacy of pulmonary ventilation, and response to care were monitored throughout the procedure. The physical status of the patient was re-assessed after the procedure. After I obtained informed consent, the scope was passed under direct vision. Throughout the procedure, the patient's blood pressure, pulse, and oxygen saturations were monitored continuously. The pediatric colonoscope was introduced through the anus and advanced to the cecum, identified by appendiceal orifice and ileocecal valve. The colonoscopy was performed without difficulty. The patient tolerated the procedure well. The quality of the bowel preparation was adequate. Scope In: 11:43:57 AM Scope Withdrawal Time 0 hours 7 minutes 44 seconds Scope Out: 11:57:52 AM Total Procedure Duration Time 0 hours 13 minutes 55 seconds Findings: The perianal and digital rectal examinations were normal. A few small and large-mouthed diverticula were found in the recto-sigmoid colon and sigmoid colon. Discontinuous areas of nonbleeding ulcerated mucosa with no stigmata of recent bleeding were present in the ascending colon and in the cecum. Biopsies were taken with a cold forceps for histology. Verification of patient identification for the specimen was done. Estimated blood loss was minimal. Impression: - Diverticulosis in the recto-sigmoid colon and in the sigmoid colon. - Mucosal ulceration. Biopsied. Recommendation: - Return patient to [facility] for ongoing care. - Resume regular diet. - Repeat colonoscopy is recommended for surveillance. The colonoscopy date will be determined after pathology results from today's exam become available for review. - Continue present medications. Procedure Code(s): --- Professional --- 77374, Colonoscopy, flexible; with biopsy, single or multiple CPT copyright 2017 [employer]. All rights reserved. The codes documented in this report are preliminary and upon ticket attendant review may be revised to meet current compliance requirements. Ned Norris DO 10/15/2022 12:10:07 PM This report has been signed electronically. Number of Addenda: 0 Note Initiated On: 10/15/2022 11:39 AM
--- NOTE | 2022-10-15 12:11 | OP.CCLET_ITS ---
10/15/2022 Carlos Malave [address] [place] [address] Re : Colonoscopy procedure for Lorenzo Ballard Dear Dr. Malave This procedure was performed on Saturday, October 15, 2022. My impressions and recommendations are as follows: Impressions : - Diverticulosis in the recto-sigmoid colon and in the sigmoid colon. - Mucosal ulceration. Biopsied. Recommendations : - Return patient to [facility] for [facility] care. - Resume regular diet. - Repeat colonoscopy is recommended for surveillance. The colonoscopy date will be determined after pathology results from today's exam become available for review. - Continue present medications. My findings are described in the full procedure note, which is enclosed. If I can be of further assistance, please feel free to contact me at . Sincerely, Ned Norris, 10/15/2022 12:10:07 PM This report has been signed electronically.
[2022-10-15 12:59] LABS: Pathologist Review Reviewed
[2022-10-15] MEDS: 0.9% Normal Saline 1,000 ML 15 ML IV (14:55)
--- NOTE | 2022-10-15 19:45 | PN.HOSP_ITS ---
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 His EGD showed erosive esophagitis with oozing gastric ulcers with pigmented material, these ulcers were injected and treated with a heater probe, there were also nonbleeding gastric ulcers with no stigmata of bleeding noted. These ulcers were biopsied, the first portion of the duodenum was normal. Patient's urine culture was positive for E. coli which was pansensitive. I talked briefly with critical care about his medical care. Critical care did not think that he had pneumonia, critical care thought that he had atelectasis. Objective Data Objective Data Vital Signs: Vital Signs Temp Pulse Resp BP Pulse Ox O2 Del Method O2 Flow Rate 97.8 F 78 20 H 109/77 92 Room Air 2 10/15/22 16:00 10/15/22 17:00 10/15/22 17:00 10/15/22 17:00 10/15/22 17:00 10/15/22 17:00 10/15/22 13:31 Oxygen Flow Rate (L/min) 2 Oxygen Delivery Method Room Air Weight: 135.1 kg Body Mass Index (BMI) 39.2 Intake & Output: Intake and Output for Last 24 Hours 10/13/22 10/14/22 10/15/22 23:59 23:59 23:59 Intake Total 675 / 675 2814.00 / 2814.00 1382.33 / 1382.33 Output Total 1800 / 1800 1250 / 1250 Balance 675 / 625 1014.00 / 1014.00 132.33 / 132.33 Lab / Micro Data Result Diagrams: 10/15/22 04:20 10/15/22 04:20 Labs: Laboratory Results - last 24 hr 10/14/22 22:30: Hgb 13.6, Hct 39.3 L 10/14/22 22:30: Sodium 126 L 10/15/22 04:20: WBC 14.0 H, RBC 4.19 L, Hgb 12.9 L, Hct 38.0 L, MCV 90.7, MCH 30.8, MCHC 33.9, RDW Std Deviation 45.7 H, RDW Coeff of Cassia 13.8, Plt Count 102 L, MPV 11.7, Immature Gran % (Auto) 0.500, Neut % (Auto) 76.6 H, Lymph % (Auto) 3.6 L, [place] % (Auto) 19.1 H, Eos % (Auto) 0.1, Baso % (Auto) 0.1, Absolute Neuts (auto) 10.7 H, Absolute Lymphs (auto) 0.50 L, Nucleated RBC % 0, Differential Comment SCANNED, Diff Path Review Reviewed 10/15/22 04:20: Sodium 126 L, Potassium 3.7, Chloride 95 L, Carbon Dioxide 23.0, Anion Gap 8, BUN 38 H, Creatinine 1.70 H, Estim Creat Clear Calc 54.83, Est GFR (MDRD) Af Amer 54 L, Est GFR (MDRD) Non-Af 44 L, BUN/Creatinine Ratio 22.4 H, Glucose 125 H, Calcium 8.3 L Micro: Microbiology 10/13/22 20:00 Urine, Clean Catch Urine Culture - Final Escherichia coli 10/13/22 19:58 Blood Culture (Wb) - Anticubital Left Blood Culture - Preliminary 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 10/13/22 19:57 Blood Culture (Wb) - Arm Right Blood Culture - Preliminary GNR 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 10/14/22 02:15 Nasal Secretion SARS-CoV-2 & FLU Antigen (Rapid) - Final 10/13/22 23:55 Urine, Clean Catch Legionella Antigen - Final 10/13/22 23:55 Urine, Clean Catch Streptococcus pneumoniae Antigen (M - Final Physical Exam Const alert, oriented x3, no apparent distress and healthy appearing General Appearance: cooperative, well kempt and well developed Orientation / Consciousness: awake, oriented to person, oriented to place and oriented to time HEENT normocephalic and moist oral mucous membranes Eyes PERRL, EOMs intact bilaterally and conjunctivae normal Neck supple, no JVD and thyroid normal General: trachea midline Resp normal respiratory effort and clear to auscultation bilaterally Auscultation: Negative for rales, rhonchi or wheezes Cardio regular rate, regular rhythm, no murmurs, no rub and no gallops GI normal to inspection, nondistended, normoactive bowel sounds, soft to palpation, non-tender and non-distended Extremity no clubbing, cyanosis or edema Skin no rashes or lesions noted General Skin Exam: no breakdown Neuro oriented x3, CN's II-XII intact bilaterally, no focal motor deficits and no sensory deficits noted Sensorium / Orientation: awake and alert Speech: speech normal Psych affect normal Assessment & Plan Assessment/Plan (1) Sepsis: (2) Severe sepsis with acute organ dysfunction: (3) Acute hyponatremia: (4) Chronic anticoagulation: (5) Acute upper GI bleed: PLAN: Plan 1. Sepsis-secondary to E. coli from acute cystitis #2 metabolic encephalopathy-resolved at this time, patient is alert and appropriate during this examiner's visit #3 upper GI bleed-secondary to gastric ulcers, not requiring a transfusion #4 use of chronic anticoagulant-this is being held at this time due to upper GI bleed #5 chronic atrial fibrillation-patient currently has a pacemaker and his rhythm is paced at this time, patient underwent an ablation on 10/11/2022 for A-fib. #6 hypertrophic obstructive cardiomyopathy-patient had treatment for this in the past with myectomy #7 acute kidney injury-patient's creatinine today was 1.7, monitor as indicated #8 hyponatremia-etiology unclear, clinically not significant Pneumonia was ruled out Total clinical time spent by myself addressing the patient's medical problems, reviewing all the data, and collaborating with patient's care team: 36 minutes Charges/Coding Visit Charges Inpatient E&M: 36693 Subs Hosp L2
[2022-10-16] MEDS: Metoclopramide 10 MG/2 ML Vial 5 MG IV ×2 (00:21→05:11)
[2022-10-16 02:00] VITALS: BP 107/67; PULSE 88; RESP 18; TEMP 37; O2SAT 93
[2022-10-16 02:18] VITALS: O2SAT 93
[2022-10-16 08:56] VITALS: BP 114/77; PULSE 72; RESP 18; TEMP 36.6; O2SAT 97
--- NOTE | 2022-10-16 10:45 | PCM.DC ---
Discharge Instructions Diet Discharge Diet: No restrictions Activity Discharge Activity: Return to Normal Activity Weight Bearing Status: Full weight bearing Follow Up Care Test Results: Test results from this visit will be discussed in further detail at your follow-up appointment, if applicable. Discharge Plan Admission Admit Date/Time: 10/13/22 21:29 Primary Reason for Your Visit: urinary tract infection, stomach ulcers Attending Provider: David Mcadams Primary Care Provider: Carlos Malave Consulting Providers: Jaiden Cook ; Friend,Ned ; Noah Reese Discharge Orders/Prescriptions Prescriptions: New pantoprazole [Protonix] 40 mg tablet,delayed release (DR/EC) 40 mg PO DAILY Qty: 30 0RF cephalexin 500 mg capsule 500 mg PO BID Qty: 14 0RF Continued apixaban 5 MG tablet 5 mg PO BID Label Comments: Take 1 tablet by mouth twice daily. albuterol sulfate 1 INHALER inhaler 1 - 2 puff INHALATION Q4H PRN PRN (Reason: Wheezing) Qty: 1 0RF lorazepam [Ativan] 0.5 mg tablet 0.5 mg PO DAILY PRN (Reason: anxiety) Qty: 7 0RF hydrocodone-acetaminophen 5-325 mg tablet 1 tab PO Q4H PRN PRN (Reason: Pain) 2 Days Qty: 10 0RF sertraline 50 mg tablet 50 mg PO DAILY Label Comments: TAKE 1 TABLET BY MOUTH EVERY DAY furosemide [Lasix] 40 mg tablet 40 mg PO DAILY lansoprazole [Prevacid] 30 mg capsule,delayed release(DR/EC) 30 mg PO DAILY Referrals / Follow Up: Carlos Malave MD [Primary Care Provider] - In 1 Week Disposition Disposition (needs filled in before D/C Order can be placed): Home, Self Care
--- NOTE | 2022-10-16 10:54 | PCM.DC.SUM ---
Providers Date of Admission: 10/13/22 Date of Discharge: 10/16/22 Primary Care Physician: Dr. Carlos Malave MD Consultations 10/13/22 23:33 Consult: Gastroenterology Routine Consulting Provider: JrNed Reason for Consult: Coffee ground emesis EMERGENT Consult: No Notified: Yes Date Notified: 10/13/22 Time Notified: 21:40 Method of Notification: Verbal Consult: Senior Product Integrity Engineer / Pulmonary Medicine Routine Consulting Provider: Noah Reese Reason for Consult: Sepsis; Pneumonia EMERGENT Consult: No Notified: Yes Date Notified: 10/13/22 Time Notified: 21:38 Method of Notification: Text Method of Consult:: In-Person Reason For Visit: SEPSIS, BILATERL PNEUMONIA, DENNIS, ACUTE ENCEPHALOPA Diagnosis Discharge Diagnosis (1) Severe sepsis with acute organ dysfunction: Status: Acute Code(s): A41.9 - Sepsis, unspecified organism; R65.20 - Severe sepsis without septic shock (2) Acute hyponatremia: Status: Acute Code(s): E87.1 - Hypo-osmolality and hyponatremia (3) Chronic anticoagulation: Status: Acute Code(s): 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 Sepsis-secondary to E. coli from urinary tract infection-acute #2 metabolic encephalopathy-resolved at this time, patient is alert and appropriate during this examiner's visit #3 upper GI bleed-secondary to gastric ulcers and esophagitis. #4 use of chronic anticoagulant-this is being held at this time due to upper GI bleed #5 chronic atrial fibrillation-patient currently has a pacemaker and his rhythm is paced at this time, patient underwent an ablation on 10/11/2022 for A-fib. #6 hypertrophic obstructive cardiomyopathy-patient had treatment for this in the past with myectomy Pneumonia was ruled out. Total clinical time spent by myself addressing the patient's medical problems, reviewing all the data, and collaborating with patient's care team: 36 minutes Medications at Discharge Home Medications apixaban 5 mg tablet 5 mg PO BID AFIB 05/29/19 albuterol sulfate 90 mcg/actuation aerosol inhaler 1 - 2 puff inhalation Q4H PRN PRN Wheezing ##1 06/28/20 lorazepam 0.5 mg tablet (Ativan) 0.5 mg PO DAILY PRN anxiety #7 tabs 10/02/22 hydrocodone-acetaminophen 5-325mg 5mg-325mg 1 tab PO Q4H PRN PRN Pain 2 days #10 TABLETS 10/12/22 furosemide 40 mg tablet (Lasix) 40 mg PO DAILY WATER PILL 10/13/22 lansoprazole 30 mg capsule,delayed release (Prevacid) 30 mg PO DAILY GERD 10/13/22 sertraline 50 mg tablet 50 mg PO DAILY ANXIETY 10/13/22 cephalexin 500 mg capsule 500 mg PO BID #14 caps 10/16/22 pantoprazole 40 mg tablet,delayed release (Protonix) 40 mg PO DAILY #30 tabs 10/16/22 Hospital Course Operations None Procedures EGD Summary of Care Provided Minutes Spent on Discharge: 31 Hospital Course: This 56-year-old white male was seen in the emergency room at [facility] with complaints of mental status change, he recently had undergone an ablation of his heart on 10/11/2022, his brother found him confused at home and brought him to the ER for examination on 10/13/2022. In the emergency department, patient was found to have had coffee-ground emesis and NG tube was placed, work-up is included labs that showed an elevated white blood cell count, elevated creatinine and BUN, and urinalysis was indicative of urinary tract infection. Chest x-ray was read out as showing multifocal pneumonia superimposed on CHF, patient was admitted to the ICU and seen in consultation by gastroenterology and critical care, it was determined that he did not actually have pneumonia and that it was more likely the patient had sepsis from an acute urinary tract infection. Patient underwent an EGD, which showed grade a erosive esophagitis, oozing gastric ulcers with pigmented material, nonbleeding gastric ulcers and a normal first portion of the duodenum. Patient was moved out to [place] [id number], he was placed on a diet and did well. Patient's blood culture grew out E. coli as did his urine culture. On 10/16/22, patient was seen and examined: On examination he appeared in good health and spirits. Vital signs as documented. Skin warm and dry and without overt rashes. Neck without JVD, neck was supple, trachea midline, thyroid was normal. Lungs clear bilaterally, normal air movement was noted. Heart exam notable for regular rhythm, normal sounds and absence of murmurs, rubs or gallops. Abdomen unremarkable and without evidence of organomegaly, masses, or abdominal aortic enlargement. Bowel sounds are present, abdomen is not distended. Extremities nonedematous, no cyanosis was noted, no clubbing was noted. Neuro: Cranial nerves II through XII are grossly intact, no focal motor deficits were noted, sensation to light touch and pinprick intact, motor exam 5/5 throughout. Psych: Patient is alert and oriented x3, he does not appear anxious or depressed, he does not appear agitated. Patient was felt stable for discharge home on 10/16/2022. 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 10/13/22 19:57 Blood Culture (Wb) - Arm Right Blood Culture - Final Escherichia coli 10/13/22 20:00 Urine, Clean Catch Urine Culture - Final Escherichia coli 10/14/22 02:15 Nasal Secretion SARS-CoV-2 & FLU Antigen (Rapid) - Final 10/13/22 23:55 Urine, Clean Catch Legionella Antigen - Final 10/13/22 23:55 Urine, Clean Catch Streptococcus pneumoniae Antigen (M - Final D/C Instructions Discharge Diet: No restrictions Weight Bearing Status: Full weight bearing Meaningful Use Info Meaningful Use Diagnoses (Choose all that apply): None applicable Discharge Plan Admission Admit Date/Time: 10/13/22 21:29 Primary Reason for Your Visit: urinary tract infection, stomach ulcers Attending Provider: David Mcadams Primary Care Provider: Carlos Malave Consulting Providers: Jaiden Cook ; Friend,Ned ; Noah Reese Discharge Orders/Prescriptions Prescriptions: New pantoprazole [Protonix] 40 mg tablet,delayed release (DR/EC) 40 mg PO DAILY Qty: 30 0RF cephalexin 500 mg capsule 500 mg PO BID Qty: 14 0RF Continued apixaban 5 MG tablet 5 mg PO BID Label Comments: Take 1 tablet by mouth twice daily. albuterol sulfate 1 INHALER inhaler 1 - 2 puff INHALATION Q4H PRN PRN (Reason: Wheezing) Qty: 1 0RF lorazepam [Ativan] 0.5 mg tablet 0.5 mg PO DAILY PRN (Reason: anxiety) Qty: 7 0RF hydrocodone-acetaminophen 5-325 mg tablet 1 tab PO Q4H PRN PRN (Reason: Pain) 2 Days Qty: 10 0RF sertraline 50 mg tablet 50 mg PO DAILY Label Comments: TAKE 1 TABLET BY MOUTH EVERY DAY furosemide [Lasix] 40 mg tablet 40 mg PO DAILY lansoprazole [Prevacid] 30 mg capsule,delayed release(DR/EC) 30 mg PO DAILY Referrals / Follow Up: Carlos Malave MD [Primary Care Provider] - In 1 Week Disposition Disposition (needs filled in before D/C Order can be placed): Home, Self Care Charges/Coding Visit Charges Inpatient E&M: 12210 Disch Hosp >30min
--- NOTE | 2022-10-18 12:37 | NURSING ---
RIP CM Discharge Follow-up Phone Call: CHELSEA:Tre Strata:3 Date of Call:10/18/22 Time of Call:1237 Admitting Diagnosis:Sepsis, Bilat Pneumonia, DENNIS Summary of Call: Spoke with patient. He is feeling beter. Advised him to make his F/U appt with PCP. He denied questions with new medications.
== END 2022-10-16 12:08 | disposition home or self-care (01) | DRG 720 ==
LOC: ED 21:15 → ICU 22:34 → MS3 10-15 18:44
PROVIDERS: Internal Medicine Gastroenterology; Admitting Provider Hospitalist; Emergency Provider Emergency Medicine; PCP Internal Medicine; Visit Provider Internal Medicine
PROC: 0DJD8ZZ Inspection of Lower Intestinal Tract, Via Natural or Artificial Opening Endoscopic (ICD-10-PCS; CPT 45378; principal; 2022-10-15 11:10)
DX: A41.51 Sepsis due to Escherichia coli [E. coli] (principal); G93.41 Metabolic encephalopathy; K25.4 Chronic or unspecified gastric ulcer with hemorrhage; I48.20 Chronic atrial fibrillation, unspecified; E87.1 Hypo-osmolality and hyponatremia; I42.1 Obstructive hypertrophic cardiomyopathy; K20.81 Other esophagitis with bleeding; N17.9 Acute kidney failure, unspecified; E86.0 Dehydration; I50.9 Heart failure, unspecified; R65.20 Severe sepsis without septic shock; E87.8 Other disorders of electrolyte and fluid balance, not elsewhere classified; K57.30 Diverticulosis of large intestine without perforation or abscess without bleeding; E66.9 Obesity, unspecified; N30.00 Acute cystitis without hematuria; Z20.822 Contact with and (suspected) exposure to COVID-19; Z79.01 Long term (current) use of anticoagulants; Z79.899 Other long term (current) drug therapy; Z95.0 Presence of cardiac pacemaker; Z68.39 Body mass index [BMI] 39.0-39.9, adult
CPT/HCPCS: 51702; 71045; 74018; 74177; 80048; 80053; 81001; 83605; 83690; 84295; 85014; 85018; 85025; 85610; 85730; 87040; 87077; 87086; 87088; 87186; 87428; 87449; 87641; 88305; 88342; 93005; 96374; 97116; 97162; 97166; 99285; J7030; J7040; J7050; Q9967; A4216; J2405; J3490

== ENCOUNTER 2023-04-08 12:32 | Emergency (ER) | payer MEDICAID, SELFPAY ==
[2023-04-08 12:32] VITALS: BP 135/84; PULSE 75; RESP 20; TEMP 35.8; O2SAT 94; BMI 40.2
[2023-04-08 12:53] LABS: Absolute Lymphocyte Count 0.89 X10^3/uL (0.83-4.51); Absolute Neutrophil Count 6.3 X10^3/uL (2.0-7.7); Basophil# 0.06 X10^3/uL; Basophil% 0.7 % (0-1); Eosinophil# 0.27 X10^3/uL; Eosinophils% 3.2 % (0-5); Hematocrit 45.4 % (40-54); Hemoglobin 14.9 g/dL (13.0-16.5); Lymphocyte # 0.89 X10^3/ul (0.83-4.51); Lymphocyte % 10.6 % (19-41); Mean Corp Hgb Conc 32.8 g/dL (32-36); Mean Corpuscular Volume 97.6 fL (80-94); Mean Platelet Vol. 10.4 fl (6.2-12.0); Monocyte# 0.84 X10^3/uL; NRBC Flagged by Analyzer 0 % (0-5); Neutrophil # 6.29 X10^3/uL (2.7-7.7); Platelet Count 249 K/mm3 (150-450); RBC Distribution Width CV 13.5 % (11.6-14.6); RBC Distribution Width SD 48.8 fl (35.1-43.9); Red Blood Count 4.65 M/mm3 (4.6-6.2); White Blood Count 8.4 K/mm3 (4.4-11.0)
[2023-04-08 13:07] VITALS: PULSE 70; RESP 20; O2SAT 95
[2023-04-08 13:07] LABS: Anion Gap 7 (5-15); BUN 27 mg/dL (7-18); BUN/Creat Ratio 17.3 RATIO (10-20); Calcium,Total 9.2 mg/dL (8.5-10.1); Chloride 95 mmol/L (98-107); Creatinine, Serum 1.56 mg/dL (0.70-1.30); EST Glomerular Filtration Rate 49 mL/min (>60); Est Glom Filt Rate - Afr Amer 59 mL/min (>60); Estimated Creatinine Clearance 59.04 ml/min; Glucose 146 mg/dL (74-106); Sodium Level 134 mmol/L (136-145)
--- NOTE | 2023-04-08 13:10 | RAD_ITS ---
STUDY: X-RAY CHEST REASON FOR EXAM: Male, 57 years old. 3 week history of shortness of breath. TECHNIQUE: Single AP portable view of the chest. COMPARISON: Comparison is made with prior study October 13, 2022. FINDINGS: EKG electrodes are seen. Basilar congestion and CHF. Focal infiltration at the right lung base. There is no demonstrated pleural abnormality. Sternal cerclage wires and vascular clips are present from a prior sternotomy and coronary artery bypass graft procedure (CABG). Moderate cardiomegaly. A left-sided dual-chamber pacemaker is seen. Normal mediastinum and seb. Normal visualized pulmonary arteries. Normal visualized aortic arch and descending thoracic aorta. There are degenerative changes of the visualized thoracic spine. Normal visualized ribs, clavicles, and shoulders. There is no demonstrated abnormality of the visualized soft tissue structures of the upper abdomen. RAD/Chest 1 View (Portable) IMPRESSION: Moderate cardiomegaly with CHF and focal infiltrate in the right lung base. Electronically Signed: Brice Jackson MD at 13:26 EDT ,
[2023-04-08 13:11] LABS: BNP,B-Type NATRIURETIC PEPTIDE 320.8 pg/mL (0-100)
[2023-04-08 14:00] VITALS: O2SAT 94
[2023-04-08 14:07] VITALS: O2SAT 94
--- NOTE | 2023-04-08 14:49 | ED.VIS.DYS ---
HPI History of Present Illness Chief Complaint: Shortness of Breath Informant: patient Narrative Narrative: Patient noting a progressive 25 pound weight gain over the past 2 weeks as well as increasing dyspnea and abdominal swelling. He notes bilateral lower extremity swelling. He denies any significant cough. Has a history of atrial fibrillation. Recently increased his Lasix to 40 mg twice a day and then dropped down again. He also began spironolactone in the past couple days. He follows with [facility] cardiology. He does not wear oxygen at home. He denies any recent fever. If possible he would like to stay out of the hospital. [facility] Medical History Acute hyponatremia Atrial fibrillation Atrial fibrillation CHF (congestive heart failure) History of atrial fibrillation Hypertrophic obstructive cardiomyopathy Pacemaker Sepsis Severe sepsis with acute organ dysfunction Home Medications apixaban 5 mg tablet 5 mg PO BID AFIB 05/29/19 [History Last Taken Unknown] albuterol sulfate 90 mcg/actuation aerosol inhaler 1 - 2 puff inhalation Q4H PRN PRN Wheezing ##1 06/28/20 [Rx Last Taken Unknown] lorazepam 0.5 mg tablet (Ativan) 0.5 mg PO DAILY PRN anxiety #7 tabs 10/02/22 [Rx Last Taken Unknown] hydrocodone-acetaminophen 5-325mg 5mg-325mg 1 tab PO Q4H PRN PRN Pain 2 days #10 TABLETS 10/12/22 [Rx Last Taken Unknown] furosemide 40 mg tablet (Lasix) 40 mg PO DAILY WATER PILL 10/13/22 [History Last Taken Unknown] lansoprazole 30 mg capsule,delayed release (Prevacid) 30 mg PO DAILY GERD 10/13/22 [History Last Taken Unknown] sertraline 50 mg tablet 50 mg PO DAILY ANXIETY 10/13/22 [History Last Taken Unknown] cephalexin 500 mg capsule 500 mg PO BID #14 caps 10/16/22 [Rx Last Taken Unknown] pantoprazole 40 mg tablet,delayed release (Protonix) 40 mg PO DAILY #30 tabs 10/16/22 [Rx Last Taken Unknown] furosemide 80 mg tablet (Lasix) 80 mg PO QODAY #30 tabs 04/08/23 [Rx Last Taken Unknown] spironolactone 50 mg tablet 50 mg PO DAILY #20 tabs 04/08/23 [Rx Last Taken Unknown] Allergy/AdvReac Type Severity Reaction Status Date / Time cat dander Allergy Other Verified 04/08/23 12:34 Family History Other Cancer Diabetes Hypertension Kidney disease Surgical History History of open heart surgery History of repair of hip fracture Social History Smoking Status: Never smoker EXAM Physical Exam Const Vital Signs: 04/08/23 12:32 04/08/23 13:07 04/08/23 13:07 Temperature 96.4 F L Temperature Source Temporal Pulse Rate 75 70 Respiratory Rate 20 H 20 H 20 H Respiratory Effort Respiratory Depth Respiratory Pattern Blood Pressure 135/84 H Blood Pressure Mean 101 Pulse Ox 94 95 95 Oxygen Delivery Method Room Air Room Air Room Air Oxygen Flow Rate (L/min) 04/08/23 14:00 04/08/23 14:07 Temperature Temperature Source Pulse Rate Respiratory Rate Respiratory Effort Short of Breath Respiratory Depth Shallow Respiratory Pattern Tachypnea Blood Pressure Blood Pressure Mean Pulse Ox Oxygen Delivery Method Room Air Room Air Oxygen Flow Rate (L/min) 92 Positive well nourished and well developed General Appearance ED: well developed HEENT Reports normocephalic, head/scalp atraumatic and moist mucous membranes Eyes PERRL and EOMs intact bilaterally Neck no lymphadenopathy, supple and no JVD Resp normal respiratory effort Auscultation: rales bilateral Cardio regular rate, regular rhythm and no murmurs GI normal to inspection, nondistended, normoactive bowel sounds and non-tender Palpation: soft Back/Spine no CVA tenderness and normal ROM Extremity normal to inspection General Extremety ED: Yes edema General Extremity: edema bilateral lower extremity Neuro oriented x3 and CN's II-XII intact bilaterally Sensorium / Orientation: alert Motor Exam: strength 5/5 throughout Psych mental status grossly normal Mood & Affect: Negative for depressed or tearful Skin no rashes or lesions noted and no wounds MDM MDM MDM Narrative Medical decision making narrative: Interpretation of the chest x-ray is pulmonary edema/congestive heart failure. Basic blood work white count is 8.4. BUN at 27 with a creatinine 1.56. Beta natruretic peptide at 320.8. Patient ambulates at 89% at the end of his walk. He states he does not feel any more short of breath sitting versus walking. He states that he is very motivated to not stay in the hospital. I am going to work with the patient to keep him out of the hospital this weekend if possible. #9 increase his Lasix to 80 mg twice a day and increase his spironolactone to 50 mg a day. He has early follow-up after the holiday weekend on Tuesday. He promises to return if worsening or concerns. Lab Data Attestation: I reviewed the patient's lab results. Labs: Laboratory Results - last 24 hr 04/08/23 12:48 WBC 8.4 RBC 4.65 Hgb 14.9 Hct 45.4 MCV 97.6 H MCH 32.0 MCHC 32.8 RDW Std Deviation 48.8 H RDW Coeff of Cassia 13.5 Plt Count 249 MPV 10.4 Immature Gran % (Auto) 0.500 Neut % (Auto) 75.0 H Lymph % (Auto) 10.6 L [place] % (Auto) 10.0 Eos % (Auto) 3.2 Baso % (Auto) 0.7 Absolute Neuts (auto) 6.3 Absolute Lymphs (auto) 0.89 Nucleated RBC % 0 Sodium 134 L Potassium 4.0 Chloride 95 L Carbon Dioxide 32.0 Anion Gap 7 BUN 27 H Creatinine 1.56 H Estim Creat Clear Calc 59.04 Est GFR (MDRD) Af Amer 59 L Est GFR (MDRD) Non-Af 49 L BUN/Creatinine Ratio 17.3 Glucose 146 H Calcium 9.2 B-Natriuretic Peptide 320.8 H Radiography Diagnostic Testing: Clinical Impression(s) from Imaging Studies Chest X-Ray 04/08/23 13:10 IMPRESSION: Moderate cardiomegaly with CHF and focal infiltrate in the right lung base. Electronically Signed: Brice Jackson MD at 13:26 EDT , Discharge Plan Triage Chief Complaint: Shortness of Breath ED Provider: Krish Atkins Dx/Rx/DC Orders Clinical Impression: Acute dyspnea, Acute right-sided CHF (congestive heart failure) Instructions: Heart Failure Prescriptions: New spironolactone 50 mg tablet 50 mg PO DAILY Qty: 20 0RF furosemide [Lasix] 80 mg tablet 80 mg PO QODAY Qty: 30 0RF No Action apixaban 5 MG tablet 5 mg PO BID Patient Comments: Take 1 tablet by mouth twice daily. albuterol sulfate 1 INHALER inhaler 1 - 2 puff INHALATION Q4H PRN PRN (Reason: Wheezing) Qty: 1 0RF lorazepam [Ativan] 0.5 mg tablet 0.5 mg PO DAILY PRN (Reason: anxiety) Qty: 7 0RF hydrocodone-acetaminophen 5-325 mg tablet 1 tab PO Q4H PRN PRN (Reason: Pain) 2 Days Qty: 10 0RF sertraline 50 mg tablet 50 mg PO DAILY Patient Comments: TAKE 1 TABLET BY MOUTH EVERY DAY furosemide [Lasix] 40 mg tablet 40 mg PO DAILY lansoprazole [Prevacid] 30 mg capsule,delayed release(DR/EC) 30 mg PO DAILY pantoprazole [Protonix] 40 mg tablet,delayed release (DR/EC) 40 mg PO DAILY Qty: 30 0RF cephalexin 500 mg capsule 500 mg PO BID Qty: 14 0RF Primary Care Provider: Carlos Malave Referrals: Carlos Malave MD [Primary Care Provider] - Keep [place] appointment Activity Restrictions/Additional Instructions: We are taking your Lasix to 80 mg twice a day. Please take your first dose of 10 in the morning and the second at 1600 hrs. Increase your spironolactone to 50 mg and take that at 1400 hrs. Please limit your fluid intake to 64 to 96 ounces of water a day. Please return to the emergency department if any concerns over the weekend Please follow-up with your primary care doctor as scheduled on Tuesday. Disposition Disposition: Home, Self Care
[2023-04-08 15:02] VITALS: BP 134/76; PULSE 64; RESP 14; TEMP 36.4; O2SAT 99
== END 2023-04-08 15:02 | disposition home or self-care (01) ==
PROVIDERS: Emergency Provider Emergency Medicine; PCP Internal Medicine; Visit Provider Emergency Medicine
DX: I50.9 Heart failure, unspecified (principal); I42.1 Obstructive hypertrophic cardiomyopathy; I48.91 Unspecified atrial fibrillation; Z79.01 Long term (current) use of anticoagulants; Z79.899 Other long term (current) drug therapy; Z95.0 Presence of cardiac pacemaker
CPT/HCPCS: 71045; 80048; 83880; 85025; 99283; A4216

== ENCOUNTER 2023-10-07 10:12 | Emergency (ER) | payer MEDICAID, SELFPAY ==
[2023-10-07 10:12] VITALS: BP 121/77; PULSE 81; RESP 16; TEMP 36.4; O2SAT 100; BMI 37.0
--- NOTE | 2023-10-07 10:23 | EDS_ITS ---
HPI History of Present Illness Chief Complaint: Abn Labs Informant: patient Narrative Narrative: Patient states that he received a phone call from at his doctor's office this morning that he needed to come to the emergency room because of abnormal blood work. He had blood work obtained within the past 2 days as routine monitoring from his physician. He states he has chronic fatigue that is unchanged from baseline. In [facility], I am able to find lab work that was drawn on October 04. This revealed a BUN of 66 and a creatinine of 2.36. Prior values from mid August were 25 and 1.48. Potassium on this blood draw was 5.6 with a previous value of 4.2. Patient states that he is no longer on Lasix but I did switch him to a different water pill. He is also recently been placed on Tikosyn. [facility] Medical History (Updated 10/07/23 @ 12:[address] Lyric Persaud MD) Acute hyponatremia Atrial fibrillation CHF (congestive heart failure) History of atrial fibrillation Hypertrophic obstructive cardiomyopathy Pacemaker Sepsis Severe sepsis with acute organ dysfunction Home Medications apixaban 5 mg tablet 5 mg PO BID AFIB 05/29/19 [History Last Taken Unknown] spironolactone 50 mg tablet 50 mg PO DAILY #20 tabs 04/08/23 [Rx Last Taken Unknown] atorvastatin 10 mg tablet 10 mg PO QHS cholesterol 10/07/23 [History Last Taken Unknown] dofetilide 125 mcg capsule (Tikosyn) 125 mcg PO BID 10/07/23 [History Last Taken Unknown] empagliflozin 10 mg tablet (Jardiance) 10 mg PO DAILY 10/07/23 [History Last Taken Unknown] metoprolol succinate 25 mg tablet,extended release 24 hr 12.5 mg PO DAILY 10/07/23 [History Last Taken Unknown] torsemide 20 mg tablet 20 mg PO BID 10/07/23 [History Last Taken Unknown] valsartan 80 mg tablet 80 mg PO DAILY 10/07/23 [History Last Taken Unknown] Allergy/AdvReac Type Severity Reaction Status Date / Time cat dander Allergy Other Verified 10/07/23 10:14 Family History Other Cancer Diabetes Hypertension Kidney disease Surgical History History of open heart surgery History of repair of hip fracture Social History Smoking Status: Never smoker ROS ROS ED Constitutional Constitutional ED: Denies chills or fever(s) Eyes Eyes: Denies change in vision ENT ENT ED: Denies rhinorrhea or sore throat Cardiovascular Cardiovascular: Denies chest pain or palpitations Respiratory/Chest Respiratory/Chest: Denies cough or dyspnea Gastrointestinal Gastrointestinal: Denies abdominal pain, nausea or vomiting Genitourinary Genitourinary ED: Denies dysuria Musculoskeletal Musculoskeletal: Denies back pain or extremity pain Integumentary Denies Abrasions or rash Neurologic Neurologic: Reports weakness; Denies headache(s) Allergic/Immunologic Allergic/Immunologic ED: Denies lip swelling or urticaria EXAM Physical Exam Const Vital Signs: 10/07/23 10:12 10/07/23 10:50 Temperature 97.5 F L Temperature Source Temporal Pulse Rate 81 Respiratory Rate 16 Respiratory Effort Normal Non-Labored Respiratory Pattern Normal Blood Pressure 121/77 H Blood Pressure Mean 91 Pulse Ox 100 Oxygen Delivery Method Room Air Positive well nourished and well developed General Appearance ED: well developed HEENT Reports moist mucous membranes Eyes EOMs intact bilaterally Chest Wall inspection of chest normal and palpation of chest normal Resp normal respiratory effort and clear to auscultation bilaterally Cardio regular rate and regular rhythm GI non-tender Palpation: soft Extremity normal to inspection Neuro oriented x3 and no sensory deficits noted Motor Exam: strength 5/5 throughout Psych mental status grossly normal Skin no rashes or lesions noted MDM MDM MDM Narrative Medical decision making narrative: Patient placed on school bus monitor. EKG obtained to evaluate for cardiac arrhythmia/ischemia. IV line established. Patient given IV fluids given his acute kidney injury. Labwork obtained to evaluate for leukocytosis, anemia, and electrolyte derangement. Potassium will be rechecked to ensure it is truly elevated and not from a hemolyzed sample prior to initiation of treatment. History & Record Review Discussion w/independent historian: Patient Lab Data Attestation: I reviewed the patient's lab results. Labs: Laboratory Results - last 24 hr 10/07/23 10/07/23 10:35 11:15 WBC 10.2 RBC 4.68 Hgb 14.3 Hct 43.1 MCV 92.1 MCH 30.6 MCHC 33.2 RDW Std Deviation 44.8 H RDW Coeff of Cassia 13.3 Plt Count 305 MPV 9.4 Immature Gran % (Auto) 0.800 Neut % (Auto) 66.7 Lymph % (Auto) 9.6 L [place] % (Auto) 13.2 H Eos % (Auto) 8.9 H Baso % (Auto) 0.8 Absolute Neuts (auto) 6.8 Absolute Lymphs (auto) 0.98 Nucleated RBC % 0 Sodium 128 L Potassium 5.6 H 4.4 Chloride 101 Carbon Dioxide 22.0 Anion Gap 5 BUN 69 H Creatinine 2.50 H Estim Creat Clear Calc 46.86 Est GFR (MDRD) Af Amer 34 L Est GFR (MDRD) Non-Af 28 L BUN/Creatinine Ratio 27.6 H Glucose 137 H Calcium 9.3 EKG Initial EKG: Attestation: I personally reviewed and interpreted this EKG as follows: Interpretation: - (Paced rhythm at 72 bpm. Unchanged when compared to prior study.) Treatment and Re-Evaluation :: CBC reveals a white blood cell count of 10.2 with a hemoglobin of 14.3. Differential is unremarkable. Chemistry studies reveal a sodium of 128 which is consistent with prior values. BUN is 69 and creatinine is 2.50. Patient has had fluctuating creatinine levels up into the 2.2-2.3 range previously but is normally in the high 1 range. Initial potassium returns at 5.6, but moderate hemolysis is noted. Repeat potassium level is drawn and is normal at 4.4. Patient has been given some IV fluids here. We discussed holding his second dose of torsemide daily through the weekend. He also reports that he recently was sick with a GI illness with vomiting and a lot of diarrhea. He likely was volume depleted with this and is still catching up on his volume status. At this time I do not think he needs to stay in the hospital for IV fluids. He will closely monitor his symptoms and return instructions are given. Discharge Plan Triage Chief Complaint: Abn Labs ED Provider: Lyric Persaud Dx/Rx/DC Orders Clinical Impression: Acute kidney injury, Dehydration Instructions: ED Dehydration (Adult) Prescriptions: No Action apixaban 5 MG tablet 5 mg PO BID Patient Comments: Take 1 tablet by mouth twice daily. spironolactone 50 mg tablet 50 mg PO DAILY Qty: 20 0RF torsemide 20 mg tablet 20 mg PO BID atorvastatin 10 mg tablet 10 mg PO QHS valsartan 80 mg tablet 80 mg PO DAILY metoprolol succinate 25 mg tablet extended release 24 hr 12.5 mg PO DAILY Jardiance 10 mg tablet 10 mg PO DAILY dofetilide [Tikosyn] 125 mcg capsule 125 mcg PO BID Primary Care Provider: Carlos Malave Referrals: Carlos Malave MD [Primary Care Provider] - 1-2 Weeks Activity Restrictions/Additional Instructions: As discussed, please hold your second dose of torsemide daily through the weekend to help with your fluid status and renal function. Disposition Disposition: Home, Self Care
[2023-10-07 10:45] LABS: Absolute Lymphocyte Count 0.98 X10^3/uL (0.83-4.51); Absolute Neutrophil Count 6.8 X10^3/uL (2.0-7.7); Basophil# 0.08 X10^3/uL; Basophil% 0.8 % (0-1); Eosinophil# 0.91 X10^3/uL; Eosinophils% 8.9 % (0-5); Hematocrit 43.1 % (40-54); Hemoglobin 14.3 g/dL (13.0-16.5); Lymphocyte # 0.98 X10^3/ul (0.83-4.51); Lymphocyte % 9.6 % (19-41); Mean Corp Hgb Conc 33.2 g/dL (32-36); Mean Corpuscular Hgb 30.6 pg (27.0-32.0); Mean Corpuscular Volume 92.1 fL (80-94); Mean Platelet Vol. 9.4 fl (6.2-12.0); Monocyte# 1.34 X10^3/uL; Monocyte% 13.2 % (0-10); NRBC Flagged by Analyzer 0 % (0-5); Neutrophil # 6.79 X10^3/uL (2.7-7.7); Neutrophil % 66.7 % (47-70); Platelet Count 305 K/mm3 (150-450); RBC Distribution Width CV 13.3 % (11.6-14.6); RBC Distribution Width SD 44.8 fl (35.1-43.9); Red Blood Count 4.68 M/mm3 (4.6-6.2); White Blood Count 10.2 K/mm3 (4.4-11.0)
[2023-10-07] MEDS: 0.9% Normal Saline (500mL Bag) 500 ML 1000 ML IV (10:48)
[2023-10-07 10:58] LABS: Anion Gap 5 (5-15); BUN 69 mg/dL (7-18); BUN/Creat Ratio 27.6 RATIO (10-20); Calcium,Total 9.3 mg/dL (8.5-10.1); Chloride 101 mmol/L (98-107); EST Glomerular Filtration Rate 28 mL/min (>60); Est Glom Filt Rate - Afr Amer 34 mL/min (>60); Estimated Creatinine Clearance 46.86 ml/min; Glucose 137 mg/dL (74-106); Potassium 5.6 mmol/L (3.5-5.1); Sodium Level 128 mmol/L (136-145)
[2023-10-07 11:38] LABS: Potassium 4.4 mmol/L (3.5-5.1)
[2023-10-07 12:12] VITALS: BP 128/70; PULSE 77; RESP 16; TEMP 36.6; O2SAT 97
== END 2023-10-07 12:13 | disposition home or self-care (01) ==
PROVIDERS: Emergency Provider Emergency Medicine; PCP Internal Medicine; Visit Provider Emergency Medicine
DX: N17.9 Acute kidney failure, unspecified (principal); I42.1 Obstructive hypertrophic cardiomyopathy; E86.0 Dehydration; R53.82 Chronic fatigue, unspecified; Z79.01 Long term (current) use of anticoagulants; Z79.84 Long term (current) use of oral hypoglycemic drugs; Z79.899 Other long term (current) drug therapy; Z95.0 Presence of cardiac pacemaker
CPT/HCPCS: 80048; 84132; 85025; 93005; 99284; J7030; A4216

== ENCOUNTER → 2024-02-02 | Outpatient (CLI) | payer MEDICAID, SELFPAY ==
[2024-02-02 12:11] LABS: Bacteria 0 SEEN /hpf (None Seen); Red Blood Cells-Urine 0 SEEN /hpf (0-5); Squamous Epithelial Cells - UA 0 SEEN /hpf (0-5); White Blood Cells 0 SEEN /hpf (0-5)
[2024-02-02 13:03] LABS: Color, Urine Yellow (Yellow); Glucose, Dipstick 100 mg/dl (Normal); Ketone-Dipstick Negative (Negative); Leukocyte Esterase-Dipstick Negative /ul (Negative); Nitrite-Dipstick Negative (Negative); Occult Blood-Urine Negative /ul (Negative); Protein-Dipstick Negative (Negative); Urine Bilirubin Dipstick Negative (Negative); Urine Clarity Clear (Clear); Urine Urobilinogen Normal (Normal)
[2024-02-02 13:14] LABS: Albumin, Serum 3.7 g/dL (3.2-5.0); BUN 37 mg/dL (7-18); BUN/Creat Ratio 16.4 RATIO (10-20); Calcium,Total 9.4 mg/dL (8.5-10.1); Chloride 105 mmol/L (98-107); Creatinine, Serum 2.25 mg/dL (0.70-1.30); EST Glomerular Filtration Rate 32 mL/min (>60); Est Glom Filt Rate - Afr Amer 39 mL/min (>60); Glucose 100 mg/dL (74-106); Phosphorus 4.4 mg/dL (2.5-4.9); Potassium 4.9 mmol/L (3.5-5.1); Sodium Level 136 mmol/L (136-145)
[2024-02-02 13:33] LABS: Hyaline Cast 5-10 SEEN /lpf (0-5); Mucous, Urine 1+ /hpf (<or=2+)
== END | disposition home or self-care (01) ==
LOC: POLAB3 12:09
PROVIDERS: PCP Internal Medicine; Visit Provider Internal Medicine Nephrology
DX: N18.4 Chronic kidney disease, stage 4 (severe) (principal); N39.0 Urinary tract infection, site not specified
CPT/HCPCS: 36415; 80069; 81001

== ENCOUNTER → 2024-04-10 | Outpatient (CLI) | payer MEDICAID, SELFPAY ==
[2024-04-10 18:22] LABS: PTHIN 75.2 pg/mL (18.4-80.1)
== END | disposition home or self-care (01) ==
LOC: POLAB3 13:24
PROVIDERS: PCP Internal Medicine; Visit Provider Internal Medicine Nephrology
DX: N18.4 Chronic kidney disease, stage 4 (severe) (principal)
CPT/HCPCS: 36415; 83970

== ENCOUNTER → 2024-04-18 | Outpatient (CLI) | payer MEDICAID, SELFPAY ==
[2024-04-18 12:51] LABS: Albumin, Serum 3.9 g/dL (3.2-5.0); BUN 44 mg/dL (7-18); BUN/Creat Ratio 26.3 RATIO (10-20); Calcium,Total 9.8 mg/dL (8.5-10.1); Chloride 102 mmol/L (98-107); Creatinine, Serum 1.67 mg/dL (0.70-1.30); EST Glomerular Filtration Rate 45 mL/min (>60); Est Glom Filt Rate - Afr Amer 55 mL/min (>60); Glucose 108 mg/dL (74-106); Phosphorus 3.2 mg/dL (2.5-4.9); Potassium 5.1 mmol/L (3.5-5.1); Sodium Level 134 mmol/L (136-145)
== END | disposition home or self-care (01) ==
PROVIDERS: PCP Internal Medicine; Visit Provider Internal Medicine Nephrology
DX: N18.32 Chronic kidney disease, stage 3b (principal)
CPT/HCPCS: 36415; 80069

== ENCOUNTER → 2024-08-10 | Outpatient (CLI) | payer MEDICAID, SELFPAY ==
[2024-08-10 11:37] LABS: Albumin, Serum 3.5 g/dL (3.2-5.0); BUN 28 mg/dL (7-18); BUN/Creat Ratio 15.2 RATIO (10-20); Chloride 96 mmol/L (98-107); Creatinine, Serum 1.84 mg/dL (0.70-1.30); EST Glomerular Filtration Rate 40 mL/min (>60); Est Glom Filt Rate - Afr Amer 49 mL/min (>60); Glucose 108 mg/dL (74-106); Phosphorus 3.3 mg/dL (2.5-4.9); Sodium Level 131 mmol/L (136-145)
== END | disposition home or self-care (01) ==
LOC: POLAB3 10:38
PROVIDERS: PCP Internal Medicine; Visit Provider Internal Medicine Nephrology
DX: N18.32 Chronic kidney disease, stage 3b (principal)
CPT/HCPCS: 36415; 80069